=== PATIENT | male | born 1940 | race Caucasian/White ===

== ENCOUNTER 2018-09-06 14:15 | Inpatient (IN) | payer MEDICARE, OTHER ==
--- NOTE | 2018-09-06 15:06 | CR ---
EXAMINATION: PA chest radiograph. HISTORY: Other specified cardiac arrhythmias. FINDINGS: The trachea is midline. The cardiomediastinal silhouette is within normal limits. No pulmonary infiltrates, effusions or pneumothorax. Left-sided pacemaker is noted. Osseous structures appear unremarkable. IMPRESSION: No acute cardiopulmonary process.
[2018-09-06 15:14] LABS: CHLORIDE,CL 90 mmol/L (98-107); SODIUM,NA 132 mmol/L (136-148)
[2018-09-06] MEDS ORDERED: Albuterol 8 GM Inhaler INH PRN (17:25)
[2018-09-06] MEDS ORDERED: Sodium Chloride 0.9% 1,000 ML IV ONE (17:33)
--- NOTE | 2018-09-06 17:39 | PCM.HP ---
H&P History of Present Illness - General Date of Service: 09/06/18 Admit Problem/Dx: Admission Diagnosis/Problem Admission Diagnosis/Problem Hyperglycemia Source of Information: Patient History Limitations: Reports: No Limitations - History of Present Illness Initial Comments - Free Text/Narative: 77M hx of CAD, HLD, A. 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 Lab work obtained by marketing senior recruiter was significant for a glucose > 700. Patient has had abnormal glucose readings in the past but were not further evaluated. Currently, he denies any fever, chills, shortness of breath or chest pain. He denies abdominal pain, nausea or vomiting. He tells me that he was scheduled for hernia repair surgery yesterday in [place] but cancelled due to not feeling well. - Related Data Allergies/Adverse Reactions: Allergies Allergy/AdvReac Type Severity Reaction Status Date / Time No Known Allergies Allergy Verified 12/11/17 20:34 Home Medications: Home Meds Albuterol Sulfate [Proair Hfa] 2 puff INH QID PRN 11/09/16 [History] Allopurinol [Zyloprim] 300 mg PO DAILY 11/09/16 [History] Aspirin [[place] Aspirin EC] 81 mg PO DAILY 11/09/16 [History] Furosemide 20 mg PO DAILY 11/09/16 [History] Losartan Potassium 50 mg PO BID 11/09/16 [History] Metoprolol Succinate 1 tab PO BID 11/09/16 [History] Multivitamin [Multivitamins] 1 tab PO DAILY 11/09/16 [History] Nitroglycerin 1 tab SL ASDIRECTED PRN 11/09/16 [History] Glycopyrrolate/Formoterol Fum [Bevespi Aerosphere Inhaler] 10.7 gm IH BID [History] Rivaroxaban [Xarelto] 15 mg PO DAILY 12/05/17 [History] Rosuvastatin Calcium 20 mg PO DAILY 12/05/17 [History] amLODIPine [Norvasc] 5 mg PO DAILY 12/05/17 [History] methylPREDNISolone [Medrol] 4 mg PO ASDIRECTED 1 Days #1 tab.ds.pk 12/05/17 [Rx] levoFLOXacin [Levaquin] 750 mg PO DAILY #7 tablet 12/13/17 [Rx] Past Medical History HEENT History: Reports: Other (See Below) Other HEENT History: wears glasses, has reagan hearing aids but does not wear Cardiovascular History: Reports: Arrhythmia, CAD, Cardiomyopathy, Heart Failure , High Cholesterol, Hypertension, [place], Pacemaker, PTCA Respiratory History: Reports: COPD, SOB Gastrointestinal History: Reports: Colon Polyp, Diverticulosis, GERD Genitourinary History: Reports: Prostate Disorder, Other (See Below) Other Genitourinary History: renal cell carcinoma, prostatectomy for prostate cancer Musculoskeletal History: Reports: Gout Other Musculoskeletal History: hx of multiple fx's Neurological History: Reports: None Psychiatric History: Reports: None Endocrine/Metabolic History: Reports: Obesity/BMI 30+ Hematologic History: Reports: None Immunologic History: Reports: None Oncologic (Cancer) History: Reports: Prostate Other Oncologic History: renal cell carcinoma, prostate cancer Dermatologic History: Reports: None - Past Surgical History Head Surgeries/Procedures: Reports: None Other Cardiovascular Surgeries/Procedures: pacemaker placement, angioplasty GI Surgical History: Reports: Cholecystectomy, Colonoscopy, Hernia, Inguinal Male Surgical History: Reports: Prostatectomy Neurological Surgical History: Reports: None Dermatological Surgical History: Reports: None Social & Family History - Family History Family Medical History: Noncontributory - Caffeine Use Caffeine Use: Reports: Coffee H&P Review of Systems - Review of Systems: Review Of Systems: See Below General: Reports: Weakness, Fatigue HEENT: Reports: No Symptoms Pulmonary: Reports: No Symptoms Cardiovascular: Reports: No Symptoms Gastrointestinal: Reports: No Symptoms Genitourinary: Reports: No Symptoms Musculoskeletal: Reports: No Symptoms Psychiatric: Reports: No Symptoms Neurological: Reports: No Symptoms Hematologic/Lymphatic: Reports: No Symptoms Immunologic: Reports: No Symptoms Exam - Exam Exam: See Below - Exam General: Alert, Oriented, Cooperative HEENT: Conjunctiva Clear, EACs Clear, EOMI, Hearing Intact, Mucosa Moist & [place] Neck: Supple, Trachea Midline Lungs: Clear to Auscultation, Normal Respiratory Effort Cardiovascular: Regular Rate, Regular Rhythm GI/Abdominal Exam: Normal Bowel Sounds, Soft, Non-Tender, No Organomegaly, No Distention Back Exam: Normal Inspection, Full Range of Motion. No: CVA Tenderness (L), CVA Tenderness (R) Extremities: Other (trace pedal edema bilaterally ) Peripheral Pulses: 1+: Dorsalis Pedis (L), Dorsalis Pedis (R) Skin: Warm, Dry Neuro Extensive - Mental Status: Alert, Oriented x3, Normal Mood/Affect Neuro Extensive - Motor, Sensory, Reflexes: CN II-XII Intact DTR: 2+: Achilles (L), Achilles (R) Psychiatric: Alert, Normal Affect, Normal Mood - Patient Data Lab Results Last 24 hrs: Laboratory Results - last 24 hr 09/06/18 09/06/18 09/06/18 Range/Units 14:38 14:38 14:38 WBC 10.49 (4.0-11.0) K/uL RBC 5.30 (4.50-5.90) M/uL Hgb 16.3 (13.0-17.0) g/dL Hct 48.3 (38.0-50.0) % MCV 91.1 (80.0-98.0) fL MCH 30.8 (27.0-32.0) pg MCHC 33.7 (31.0-37.0) g/dL RDW Std Deviation 47.8 (28.0-62.0) fl RDW Coeff of Robert 14 (11.0-15.0) % Plt Count 167 (150-400) K/uL MPV 12.00 (7.40-12.00) fL Neut % (Auto) 77.4 (48.0-80.0) % Lymph % (Auto) 15.0 L (16.0-40.0) % Humphreys % (Auto) 6.1 (0.0-15.0) % Eos % (Auto) 1.0 (0.0-7.0) % Baso % (Auto) 0.5 (0.0-1.5) % Neut # (Auto) 8.1 H (1.4-5.7) K/uL Lymph # (Auto) 1.6 (0.6-2.4) K/uL Humphreys # (Auto) 0.6 (0.0-0.8) K/uL Eos # (Auto) 0.1 (0.0-0.7) K/uL Baso # (Auto) 0.1 (0.0-0.1) K/uL Nucleated RBC % 0.0 /100WBC Nucleated RBCs # 0 K/uL Sodium 132 L (136-148) mmol/L Potassium 3.9 (3.5-5.1) mmol/L Chloride 90 L (98-107) mmol/L Carbon Dioxide 21.2 (21.0-32.0) mmol/L BUN 27 H (7.0-18.0) mg/dL Creatinine 1.7 H (0.8-1.3) mg/dL Est Cr Clr Drug Dosing TNP Estimated GFR (MDRD) 39.1 ml/min Glucose 717 H* (74-106) mg/dL Calcium 9.7 (8.5-10.1) mg/dL Total Bilirubin 1.8 H (0.2-1.0) mg/dL AST 28 (15-37) IU/L ALT 56 (14-63) IU/L Alkaline Phosphatase 128 H (46-116) U/L B-Natriuretic Peptide 22 (<100) PG/ML Total Protein 7.8 (6.4-8.2) g/dL Albumin 4.1 (3.4-5.0) g/dL Globulin 3.7 (2.6-4.0) g/dL Albumin/Globulin Ratio 1.1 (0.9-1.6) Ketones (NEG) 09/06/18 09/06/18 Range/Units 14:38 15:43 WBC (4.0-11.0) K/uL RBC (4.50-5.90) M/uL Hgb (13.0-17.0) g/dL Hct (38.0-50.0) % MCV (80.0-98.0) fL MCH (27.0-32.0) pg MCHC (31.0-37.0) g/dL RDW Std Deviation (28.0-62.0) fl RDW Coeff of Robert (11.0-15.0) % Plt Count (150-400) K/uL MPV (7.40-12.00) fL Neut % (Auto) (48.0-80.0) % Lymph % (Auto) (16.0-40.0) % Humphreys % (Auto) (0.0-15.0) % Eos % (Auto) (0.0-7.0) % Baso % (Auto) (0.0-1.5) % Neut # (Auto) (1.4-5.7) K/uL Lymph # (Auto) (0.6-2.4) K/uL Humphreys # (Auto) (0.0-0.8) K/uL Eos # (Auto) (0.0-0.7) K/uL Baso # (Auto) (0.0-0.1) K/uL Nucleated RBC % /100WBC Nucleated RBCs # K/uL Sodium (136-148) mmol/L Potassium (3.5-5.1) mmol/L Chloride (98-107) mmol/L Carbon Dioxide (21.0-32.0) mmol/L BUN (7.0-18.0) mg/dL Creatinine (0.8-1.3) mg/dL Est Cr Clr Drug Dosing Estimated GFR (MDRD) ml/min Glucose 688 H* (74-106) mg/dL Calcium (8.5-10.1) mg/dL Total Bilirubin (0.2-1.0) mg/dL AST (15-37) IU/L ALT (14-63) IU/L Alkaline Phosphatase (46-116) U/L B-Natriuretic Peptide (<100) PG/ML Total Protein (6.4-8.2) g/dL Albumin (3.4-5.0) g/dL Globulin (2.6-4.0) g/dL Albumin/Globulin Ratio (0.9-1.6) Ketones MODERATE H (NEG) Result Diagrams: 09/06/18 14:38 09/06/18 14:38 Problem List Initiated/Reviewed/Updated: Yes Orders Last 24hrs: Active Orders 24 hr Category Date Time Status Patient Status [ADT] Routine ADT 09/06/18 17:22 Active EKG Documentation Completion [RC] STAT Care 09/06/18 17:33 Ordered Oxygen Therapy [RC] PRN Care 09/06/18 17:22 Active Up ad Bernie [RC] ASDIRECTED Care 09/06/18 17:22 Active VTE/DVT Education [RC] PER UNIT ROUTINE Care 09/06/18 17:22 Active Vital Signs [RC] Q4H Care 09/06/18 17:22 Active Consult to Diabetic Nurse Specialist [CONS] Routine Cons 09/06/18 17:25 Active [place] Diet [DIET] Diet 09/07/18 Breakfast Active CBC W/O DIFF,HEMOGRAM [HEME] AM Lab 09/07/18 05:11 Ordered COMPREHENSIVE METABOLIC PN,CMP [CHEM] AM Lab 09/07/18 05:11 Ordered TROPONIN I [CHEM] Stat Lab 09/06/18 17:22 Ordered Albuterol [Proventil HFA] Med 09/06/18 17:25 Ordered DOSE gm INH QID PRN Allopurinol [Zyloprim] Med 09/07/18 09:00 Ordered 300 mg PO DAILY Aspirin [Halfprin] Med 09/07/18 09:00 Ordered 81 mg PO DAILY Glycopyrrolate/Formoterol Fum [Bevespi Aerosphere Med 09/06/18 21:00 Ordered Inhaler] 10.7 gm IH BID Insulin Regular, Human [NovoLIN R] 100 unit Med 09/06/18 17:30 Active Sodium Chloride 0.9% [Normal Saline] 99 ml IV TITRATE Metoprolol Succinate [Toprol XL] Med 09/06/18 21:00 Ordered 50 mg PO BID Rivaroxaban [Xarelto] Med 09/07/18 09:00 Ordered 15 mg PO DAILY Rosuvastatin Calcium [Rosuvastatin Calcium] Med 09/07/18 09:00 Ordered 20 mg PO DAILY Sodium Chloride 0.9% [Normal Saline] 1,000 ml Med 09/06/18 17:33 Ordered IV STAT amLODIPine [Norvasc] Med 09/07/18 09:00 Ordered 5 mg PO DAILY Resuscitation Status Routine Resus Stat 09/06/18 17:22 Ordered Medication Orders Albuterol (Proventil Hfa) gm INH QID PRN PRN Reason: Shortness of Breath Allopurinol (Zyloprim) 300 mg PO DAILY JESSE Amlodipine Besylate (Norvasc) 5 mg PO DAILY [facility] Aspirin (Halfprin) 81 mg PO DAILY [facility] Insulin Human Regular 100 unit (/ Sodium Chloride) 100 mls @ 2 mls/hr IV TITRATE JESSE; Protocol Metoprolol Succinate (Toprol Xl) 50 mg PO BID [facility] Non-Formulary Medication (Glycopyrrolate/Formoterol Fum [Bevespi Aerosphere Inhaler]) 10.7 gm IH BID JESSE Non-Formulary Medication (Rosuvastatin Calcium [Rosuvastatin Calcium]) 20 mg PO DAILY JESSE Rivaroxaban (Xarelto) 15 mg PO DAILY [facility] Assessment/Plan Comment:: Assessment: #1. Hyperglycemia with ketonuria #2. GILLIAN #3. Mild hyponatremia #4. Hyperbilirubinemia #5. Elevated alk phos #6. History of CAD, CHF, a. Fib, gout, HTN, COPD, Plan: #1. Admit to inpatient ICU #2. Vitals per floor. Cardiac tele. Diabetic diet. 1L IVNS bolus x1 #3. Insulin drip #4. Troponin #5. EKG #6. BMP 4 hours after first reading #7. Lipase #8. Hgba1c #9. Consult service desk manager
[2018-09-06 19:04] LABS: CHLORIDE,CL 94 mmol/L (98-107); SODIUM,NA 133 mmol/L (136-148)
[2018-09-06] MEDS: NS + KCl 20mEq/L 1,000 ML IV SCH (19:09)
[2018-09-06] MEDS: BEVESPI AEROSPHERE INH SCH (20:31)
[2018-09-06] MEDS: Metoprolol Succinate 50 MG Tab.ER PO SCH (20:31)
[2018-09-07] MEDS ORDERED: Potassium Chloride 20 MEQ Tab.ER PO ONE ×2 (02:56→07:30)
[2018-09-07] MEDS: NS + KCl 20mEq/L 1,000 ML IV SCH (05:11)
[2018-09-07 06:41] LABS: HEMOGLOBIN A1C 12.1 % (4.5-6.2)
[2018-09-07] MEDS: Insulin Aspart 100 Units/ML 3 ML Pen SUBCUT SCH ×5 (07:41→17:39)
[2018-09-07] MEDS: Allopurinol 300 MG Tab PO SCH (08:07)
[2018-09-07] MEDS: Rivaroxaban 15 MG Tab PO SCH (08:07)
[2018-09-07] MEDS: Rosuvastatin 10 MG Tab PO SCH (08:08)
[2018-09-07] MEDS: amLODIPine 5 MG Tab PO SCH (08:08)
[2018-09-07] MEDS: Aspirin 81 MG Tab.EC PO SCH (08:08)
[2018-09-07] MEDS: Metoprolol Succinate 50 MG Tab.ER PO SCH ×2 (08:08→20:46)
[2018-09-07] MEDS ORDERED: Insulin Glargine,Human Rec. Analog 100 Units/ML 3 ML Pen SUBCUT SCH (09:00)
[2018-09-07] MEDS: Insulin Glargine,Human Rec. Analog 100 Units/ML 3 ML Pen SUBCUT SCH (09:24)
[2018-09-07] MEDS: BEVESPI AEROSPHERE INH SCH ×2 (09:42→20:47)
[2018-09-07] MEDS ORDERED: Insulin Aspart 100 Units/ML 3 ML Pen SUBCUT ONE ×2 (12:11→13:50)
--- NOTE | 2018-09-07 13:19 | PCM.PN ---
- General Info Date of Service: 09/07/18 Subjective Update: Feels better. Off insulin drip on insulin sliding scale. Is tolerating PO, denying pain or nausea. - Review of Systems General: Reports: Other (see hpi) - Patient Data Vitals - Most Recent: Last Vital Signs Temp 36.1 C 09/07/18 08:00 Pulse 71 09/07/18 12:06 Resp 19 09/07/18 12:06 BP 140/74 09/07/18 12:06 Pulse Ox 91 L 09/07/18 12:06 Weight - Most Recent: 96.842 kg I&O - Last 24 Hours: Intake & Output 09/06/18 09/07/18 09/07/18 22:59 06:59 14:59 Intake Total 600 1761 Output Total 300 800 Balance 300 961 Lab Results Last 24 Hours: Laboratory Results - last 24 hr 09/06/18 09/06/18 09/06/18 Range/Units 14:38 14:38 14:38 WBC 10.49 (4.0-11.0) K/uL RBC 5.30 (4.50-5.90) M/uL Hgb 16.3 (13.0-17.0) g/dL Hct 48.3 (38.0-50.0) % MCV 91.1 (80.0-98.0) fL MCH 30.8 (27.0-32.0) pg MCHC 33.7 (31.0-37.0) g/dL RDW Std Deviation 47.8 (28.0-62.0) fl RDW Coeff of Robert 14 (11.0-15.0) % Plt Count 167 (150-400) K/uL MPV 12.00 (7.40-12.00) fL Neut % (Auto) 77.4 (48.0-80.0) % Lymph % (Auto) 15.0 L (16.0-40.0) % Franklin % (Auto) 6.1 (0.0-15.0) % Eos % (Auto) 1.0 (0.0-7.0) % Baso % (Auto) 0.5 (0.0-1.5) % Neut # (Auto) 8.1 H (1.4-5.7) K/uL Lymph # (Auto) 1.6 (0.6-2.4) K/uL Franklin # (Auto) 0.6 (0.0-0.8) K/uL Eos # (Auto) 0.1 (0.0-0.7) K/uL Baso # (Auto) 0.1 (0.0-0.1) K/uL Nucleated RBC % 0.0 /100WBC Nucleated RBCs # 0 K/uL Sodium 132 L (136-148) mmol/L Potassium 3.9 (3.5-5.1) mmol/L Chloride 90 L (98-107) mmol/L Carbon Dioxide 21.2 (21.0-32.0) mmol/L BUN 27 H (7.0-18.0) mg/dL Creatinine 1.7 H (0.8-1.3) mg/dL Est Cr Clr Drug Dosing TNP Estimated GFR (MDRD) 39.1 ml/min Glucose 717 H* (74-106) mg/dL POC Glucose (60-110) mg/dL Hemoglobin A1c (4.5-6.2) % Calcium 9.7 (8.5-10.1) mg/dL Phosphorus (2.6-4.7) mg/dL Magnesium (1.8-2.4) mg/dL Total Bilirubin 1.8 H (0.2-1.0) mg/dL AST 28 (15-37) IU/L ALT 56 (14-63) IU/L Alkaline Phosphatase 128 H (46-116) U/L Troponin I (0.000-0.056) ng/mL B-Natriuretic Peptide 22 (<100) PG/ML Total Protein 7.8 (6.4-8.2) g/dL Albumin 4.1 (3.4-5.0) g/dL Globulin 3.7 (2.6-4.0) g/dL Albumin/Globulin Ratio 1.1 (0.9-1.6) Lipase (73-393) U/L Urine Color Urine Appearance Urine pH (5.0-8.0) Ur Specific Ward (1.001-1.035) Urine Protein (NEGATIVE) mg/dL Urine Glucose (UA) (NEGATIVE) mg/dL Urine Ketones (NEGATIVE) mg/dL Urine Occult Blood (NEGATIVE) Urine Nitrite (NEGATIVE) Urine Bilirubin (NEGATIVE) Urine Urobilinogen (<2.0) EU/dL Ur Leukocyte Esterase (NEGATIVE) Ketones (NEG) 09/06/18 09/06/18 09/06/18 Range/Units 14:38 15:43 15:43 WBC (4.0-11.0) K/uL RBC (4.50-5.90) M/uL Hgb (13.0-17.0) g/dL Hct (38.0-50.0) % MCV (80.0-98.0) fL MCH (27.0-32.0) pg MCHC (31.0-37.0) g/dL RDW Std Deviation (28.0-62.0) fl RDW Coeff of Robert (11.0-15.0) % Plt Count (150-400) K/uL MPV (7.40-12.00) fL Neut % (Auto) (48.0-80.0) % Lymph % (Auto) (16.0-40.0) % Franklin % (Auto) (0.0-15.0) % Eos % (Auto) (0.0-7.0) % Baso % (Auto) (0.0-1.5) % Neut # (Auto) (1.4-5.7) K/uL Lymph # (Auto) (0.6-2.4) K/uL Franklin # (Auto) (0.0-0.8) K/uL Eos # (Auto) (0.0-0.7) K/uL Baso # (Auto) (0.0-0.1) K/uL Nucleated RBC % /100WBC Nucleated RBCs # K/uL Sodium (136-148) mmol/L Potassium (3.5-5.1) mmol/L Chloride (98-107) mmol/L Carbon Dioxide (21.0-32.0) mmol/L BUN (7.0-18.0) mg/dL Creatinine (0.8-1.3) mg/dL Est Cr Clr Drug Dosing Estimated GFR (MDRD) ml/min Glucose 688 H* (74-106) mg/dL POC Glucose (60-110) mg/dL Hemoglobin A1c (4.5-6.2) % Calcium (8.5-10.1) mg/dL Phosphorus (2.6-4.7) mg/dL Magnesium (1.8-2.4) mg/dL Total Bilirubin (0.2-1.0) mg/dL AST (15-37) IU/L ALT (14-63) IU/L Alkaline Phosphatase (46-116) U/L Troponin I < 0.050 (0.000-0.056) ng/mL B-Natriuretic Peptide (<100) PG/ML Total Protein (6.4-8.2) g/dL Albumin (3.4-5.0) g/dL Globulin (2.6-4.0) g/dL Albumin/Globulin Ratio (0.9-1.6) Lipase (73-393) U/L Urine Color Urine Appearance Urine pH (5.0-8.0) Ur Specific Ward (1.001-1.035) Urine Protein (NEGATIVE) mg/dL Urine Glucose (UA) (NEGATIVE) mg/dL Urine Ketones (NEGATIVE) mg/dL Urine Occult Blood (NEGATIVE) Urine Nitrite (NEGATIVE) Urine Bilirubin (NEGATIVE) Urine Urobilinogen (<2.0) EU/dL Ur Leukocyte Esterase (NEGATIVE) Ketones MODERATE H (NEG) 09/06/18 09/06/18 09/06/18 Range/Units 15:43 17:51 18:26 WBC (4.0-11.0) K/uL RBC (4.50-5.90) M/uL Hgb (13.0-17.0) g/dL Hct (38.0-50.0) % MCV (80.0-98.0) fL MCH (27.0-32.0) pg MCHC (31.0-37.0) g/dL RDW Std Deviation (28.0-62.0) fl RDW Coeff of Robert (11.0-15.0) % Plt Count (150-400) K/uL MPV (7.40-12.00) fL Neut % (Auto) (48.0-80.0) % Lymph % (Auto) (16.0-40.0) % Franklin % (Auto) (0.0-15.0) % Eos % (Auto) (0.0-7.0) % Baso % (Auto) (0.0-1.5) % Neut # (Auto) (1.4-5.7) K/uL Lymph # (Auto) (0.6-2.4) K/uL Franklin # (Auto) (0.0-0.8) K/uL Eos # (Auto) (0.0-0.7) K/uL Baso # (Auto) (0.0-0.1) K/uL Nucleated RBC % /100WBC Nucleated RBCs # K/uL Sodium 133 L (136-148) mmol/L Potassium 3.6 (3.5-5.1) mmol/L Chloride 94 L (98-107) mmol/L Carbon Dioxide 21.4 (21.0-32.0) mmol/L BUN 27 H (7.0-18.0) mg/dL Creatinine 1.5 H (0.8-1.3) mg/dL Est Cr Clr Drug Dosing TNP Estimated GFR (MDRD) 45.1 ml/min Glucose 573 H* (74-106) mg/dL POC Glucose > 500 H (60-110) mg/dL Hemoglobin A1c (4.5-6.2) % Calcium 9.5 (8.5-10.1) mg/dL Phosphorus (2.6-4.7) mg/dL Magnesium (1.8-2.4) mg/dL Total Bilirubin (0.2-1.0) mg/dL AST (15-37) IU/L ALT (14-63) IU/L Alkaline Phosphatase (46-116) U/L Troponin I (0.000-0.056) ng/mL B-Natriuretic Peptide (<100) PG/ML Total Protein (6.4-8.2) g/dL Albumin (3.4-5.0) g/dL Globulin (2.6-4.0) g/dL Albumin/Globulin Ratio (0.9-1.6) Lipase 118 (73-393) U/L Urine Color Urine Appearance Urine pH (5.0-8.0) Ur Specific Ward (1.001-1.035) Urine Protein (NEGATIVE) mg/dL Urine Glucose (UA) (NEGATIVE) mg/dL Urine Ketones (NEGATIVE) mg/dL Urine Occult Blood (NEGATIVE) Urine Nitrite (NEGATIVE) Urine Bilirubin (NEGATIVE) Urine Urobilinogen (<2.0) EU/dL Ur Leukocyte Esterase (NEGATIVE) Ketones (NEG) 09/06/18 09/06/18 09/06/18 Range/Units 18:26 18:59 20:30 WBC (4.0-11.0) K/uL RBC (4.50-5.90) M/uL Hgb (13.0-17.0) g/dL Hct (38.0-50.0) % MCV (80.0-98.0) fL MCH (27.0-32.0) pg MCHC (31.0-37.0) g/dL RDW Std Deviation (28.0-62.0) fl RDW Coeff of Robert (11.0-15.0) % Plt Count (150-400) K/uL MPV (7.40-12.00) fL Neut % (Auto) (48.0-80.0) % Lymph % (Auto) (16.0-40.0) % Franklin % (Auto) (0.0-15.0) % Eos % (Auto) (0.0-7.0) % Baso % (Auto) (0.0-1.5) % Neut # (Auto) (1.4-5.7) K/uL Lymph # (Auto) (0.6-2.4) K/uL Franklin # (Auto) (0.0-0.8) K/uL Eos # (Auto) (0.0-0.7) K/uL Baso # (Auto) (0.0-0.1) K/uL Nucleated RBC % /100WBC Nucleated RBCs # K/uL Sodium (136-148) mmol/L Potassium (3.5-5.1) mmol/L Chloride (98-107) mmol/L Carbon Dioxide (21.0-32.0) mmol/L BUN (7.0-18.0) mg/dL Creatinine (0.8-1.3) mg/dL Est Cr Clr Drug Dosing Estimated GFR (MDRD) ml/min Glucose (74-106) mg/dL POC Glucose 481 H (60-110) mg/dL Hemoglobin A1c (4.5-6.2) % Calcium (8.5-10.1) mg/dL Phosphorus 4.2 (2.6-4.7) mg/dL Magnesium 2.1 (1.8-2.4) mg/dL Total Bilirubin (0.2-1.0) mg/dL AST (15-37) IU/L ALT (14-63) IU/L Alkaline Phosphatase (46-116) U/L Troponin I (0.000-0.056) ng/mL B-Natriuretic Peptide (<100) PG/ML Total Protein (6.4-8.2) g/dL Albumin (3.4-5.0) g/dL Globulin (2.6-4.0) g/dL Albumin/Globulin Ratio (0.9-1.6) Lipase (73-393) U/L Urine Color YELLOW Urine Appearance CLEAR Urine pH 5.0 (5.0-8.0) Ur Specific Ward 1.015 (1.001-1.035) Urine Protein NEGATIVE (NEGATIVE) mg/dL Urine Glucose (UA) >=1000 (NEGATIVE) mg/dL Urine Ketones 40 H (NEGATIVE) mg/dL Urine Occult Blood NEGATIVE (NEGATIVE) Urine Nitrite NEGATIVE (NEGATIVE) Urine Bilirubin NEGATIVE (NEGATIVE) Urine Urobilinogen 0.2 (<2.0) EU/dL Ur Leukocyte Esterase NEGATIVE (NEGATIVE) Ketones (NEG) 09/06/18 09/06/18 09/07/18 Range/Units 22:01 23:05 00:02 WBC (4.0-11.0) K/uL RBC (4.50-5.90) M/uL Hgb (13.0-17.0) g/dL Hct (38.0-50.0) % MCV (80.0-98.0) fL MCH (27.0-32.0) pg MCHC (31.0-37.0) g/dL RDW Std Deviation (28.0-62.0) fl RDW Coeff of Robert (11.0-15.0) % Plt Count (150-400) K/uL MPV (7.40-12.00) fL Neut % (Auto) (48.0-80.0) % Lymph % (Auto) (16.0-40.0) % Franklin % (Auto) (0.0-15.0) % Eos % (Auto) (0.0-7.0) % Baso % (Auto) (0.0-1.5) % Neut # (Auto) (1.4-5.7) K/uL Lymph # (Auto) (0.6-2.4) K/uL Franklin # (Auto) (0.0-0.8) K/uL Eos # (Auto) (0.0-0.7) K/uL Baso # (Auto) (0.0-0.1) K/uL Nucleated RBC % /100WBC Nucleated RBCs # K/uL Sodium 136 (136-148) mmol/L Potassium 3.3 L (3.5-5.1) mmol/L Chloride 99 (98-107) mmol/L Carbon Dioxide 23.3 (21.0-32.0) mmol/L BUN 29 H (7.0-18.0) mg/dL Creatinine 1.4 H (0.8-1.3) mg/dL Est Cr Clr Drug Dosing 48.35 Estimated GFR (MDRD) 48.9 ml/min Glucose 494 H (74-106) mg/dL POC Glucose 396 H 350 H (60-110) mg/dL Hemoglobin A1c (4.5-6.2) % Calcium 9.0 (8.5-10.1) mg/dL Phosphorus (2.6-4.7) mg/dL Magnesium (1.8-2.4) mg/dL Total Bilirubin (0.2-1.0) mg/dL AST (15-37) IU/L ALT (14-63) IU/L Alkaline Phosphatase (46-116) U/L Troponin I (0.000-0.056) ng/mL B-Natriuretic Peptide (<100) PG/ML Total Protein (6.4-8.2) g/dL Albumin (3.4-5.0) g/dL Globulin (2.6-4.0) g/dL Albumin/Globulin Ratio (0.9-1.6) Lipase (73-393) U/L Urine Color Urine Appearance Urine pH (5.0-8.0) Ur Specific Ward (1.001-1.035) Urine Protein (NEGATIVE) mg/dL Urine Glucose (UA) (NEGATIVE) mg/dL Urine Ketones (NEGATIVE) mg/dL Urine Occult Blood (NEGATIVE) Urine Nitrite (NEGATIVE) Urine Bilirubin (NEGATIVE) Urine Urobilinogen (<2.0) EU/dL Ur Leukocyte Esterase (NEGATIVE) Ketones (NEG) 09/07/18 09/07/18 09/07/18 Range/Units 01:04 02:05 02:07 WBC (4.0-11.0) K/uL RBC (4.50-5.90) M/uL Hgb (13.0-17.0) g/dL Hct (38.0-50.0) % MCV (80.0-98.0) fL MCH (27.0-32.0) pg MCHC (31.0-37.0) g/dL RDW Std Deviation (28.0-62.0) fl RDW Coeff of Robert (11.0-15.0) % Plt Count (150-400) K/uL MPV (7.40-12.00) fL Neut % (Auto) (48.0-80.0) % Lymph % (Auto) (16.0-40.0) % Franklin % (Auto) (0.0-15.0) % Eos % (Auto) (0.0-7.0) % Baso % (Auto) (0.0-1.5) % Neut # (Auto) (1.4-5.7) K/uL Lymph # (Auto) (0.6-2.4) K/uL Franklin # (Auto) (0.0-0.8) K/uL Eos # (Auto) (0.0-0.7) K/uL Baso # (Auto) (0.0-0.1) K/uL Nucleated RBC % /100WBC Nucleated RBCs # K/uL Sodium 140 (136-148) mmol/L Potassium 3.1 L (3.5-5.1) mmol/L Chloride 103 (98-107) mmol/L Carbon Dioxide 26.9 (21.0-32.0) mmol/L BUN 26 H (7.0-18.0) mg/dL Creatinine 1.3 (0.8-1.3) mg/dL Est Cr Clr Drug Dosing 52.07 Estimated GFR (MDRD) 53.3 ml/min Glucose 332 H (74-106) mg/dL POC Glucose 325 H 267 H (60-110) mg/dL Hemoglobin A1c (4.5-6.2) % Calcium 9.0 (8.5-10.1) mg/dL Phosphorus (2.6-4.7) mg/dL Magnesium (1.8-2.4) mg/dL Total Bilirubin (0.2-1.0) mg/dL AST (15-37) IU/L ALT (14-63) IU/L Alkaline Phosphatase (46-116) U/L Troponin I (0.000-0.056) ng/mL B-Natriuretic Peptide (<100) PG/ML Total Protein (6.4-8.2) g/dL Albumin (3.4-5.0) g/dL Globulin (2.6-4.0) g/dL Albumin/Globulin Ratio (0.9-1.6) Lipase (73-393) U/L Urine Color Urine Appearance Urine pH (5.0-8.0) Ur Specific Ward (1.001-1.035) Urine Protein (NEGATIVE) mg/dL Urine Glucose (UA) (NEGATIVE) mg/dL Urine Ketones (NEGATIVE) mg/dL Urine Occult Blood (NEGATIVE) Urine Nitrite (NEGATIVE) Urine Bilirubin (NEGATIVE) Urine Urobilinogen (<2.0) EU/dL Ur Leukocyte Esterase (NEGATIVE) Ketones (NEG) 09/07/18 09/07/18 09/07/18 Range/Units 03:03 04:10 05:14 WBC (4.0-11.0) K/uL RBC (4.50-5.90) M/uL Hgb (13.0-17.0) g/dL Hct (38.0-50.0) % MCV (80.0-98.0) fL MCH (27.0-32.0) pg MCHC (31.0-37.0) g/dL RDW Std Deviation (28.0-62.0) fl RDW Coeff of Robert (11.0-15.0) % Plt Count (150-400) K/uL MPV (7.40-12.00) fL Neut % (Auto) (48.0-80.0) % Lymph % (Auto) (16.0-40.0) % Franklin % (Auto) (0.0-15.0) % Eos % (Auto) (0.0-7.0) % Baso % (Auto) (0.0-1.5) % Neut # (Auto) (1.4-5.7) K/uL Lymph # (Auto) (0.6-2.4) K/uL Franklin # (Auto) (0.0-0.8) K/uL Eos # (Auto) (0.0-0.7) K/uL Baso # (Auto) (0.0-0.1) K/uL Nucleated RBC % /100WBC Nucleated RBCs # K/uL Sodium (136-148) mmol/L Potassium (3.5-5.1) mmol/L Chloride (98-107) mmol/L Carbon Dioxide (21.0-32.0) mmol/L BUN (7.0-18.0) mg/dL Creatinine (0.8-1.3) mg/dL Est Cr Clr Drug Dosing Estimated GFR (MDRD) ml/min Glucose (74-106) mg/dL POC Glucose 298 H 241 H 255 H (60-110) mg/dL Hemoglobin A1c (4.5-6.2) % Calcium (8.5-10.1) mg/dL Phosphorus (2.6-4.7) mg/dL Magnesium (1.8-2.4) mg/dL Total Bilirubin (0.2-1.0) mg/dL AST (15-37) IU/L ALT (14-63) IU/L Alkaline Phosphatase (46-116) U/L Troponin I (0.000-0.056) ng/mL B-Natriuretic Peptide (<100) PG/ML Total Protein (6.4-8.2) g/dL Albumin (3.4-5.0) g/dL Globulin (2.6-4.0) g/dL Albumin/Globulin Ratio (0.9-1.6) Lipase (73-393) U/L Urine Color Urine Appearance Urine pH (5.0-8.0) Ur Specific Ward (1.001-1.035) Urine Protein (NEGATIVE) mg/dL Urine Glucose (UA) (NEGATIVE) mg/dL Urine Ketones (NEGATIVE) mg/dL Urine Occult Blood (NEGATIVE) Urine Nitrite (NEGATIVE) Urine Bilirubin (NEGATIVE) Urine Urobilinogen (<2.0) EU/dL Ur Leukocyte Esterase (NEGATIVE) Ketones (NEG) 09/07/18 09/07/1809/07/19 Range/Units 06:00 06:00 06:00 WBC 8.56 (4.0-11.0) K/uL RBC 4.72 (4.50-5.90) M/uL Hgb 14.2 (13.0-17.0) g/dL Hct 41.8 (38.0-50.0) % MCV 88.6 (80.0-98.0) fL MCH 30.1 (27.0-32.0) pg MCHC 34.0 (31.0-37.0) g/dL RDW Std Deviation 45.4 (28.0-62.0) fl RDW Coeff of Robert 14 (11.0-15.0) % Plt Count 140 L (150-400) K/uL MPV 11.50 (7.40-12.00) fL Neut % (Auto) (48.0-80.0) % Lymph % (Auto) (16.0-40.0) % Franklin % (Auto) (0.0-15.0) % Eos % (Auto) (0.0-7.0) % Baso % (Auto) (0.0-1.5) % Neut # (Auto) (1.4-5.7) K/uL Lymph # (Auto) (0.6-2.4) K/uL Franklin # (Auto) (0.0-0.8) K/uL Eos # (Auto) (0.0-0.7) K/uL Baso # (Auto) (0.0-0.1) K/uL Nucleated RBC % 0.0 /100WBC Nucleated RBCs # 0 K/uL Sodium 142 (136-148) mmol/L Potassium 3.3 L (3.5-5.1) mmol/L Chloride 107 (98-107) mmol/L Carbon Dioxide 26.2 (21.0-32.0) mmol/L BUN 23 H (7.0-18.0) mg/dL Creatinine 1.2 (0.8-1.3) mg/dL Est Cr Clr Drug Dosing 56.41 Estimated GFR (MDRD) 58.4 ml/min Glucose 226 H (74-106) mg/dL POC Glucose (60-110) mg/dL Hemoglobin A1c 12.1 H (4.5-6.2) % Calcium 8.9 (8.5-10.1) mg/dL Phosphorus (2.6-4.7) mg/dL Magnesium (1.8-2.4) mg/dL Total Bilirubin 0.8 (0.2-1.0) mg/dL AST 16 (15-37) IU/L ALT 38 (14-63) IU/L Alkaline Phosphatase 92 (46-116) U/L Troponin I (0.000-0.056) ng/mL B-Natriuretic Peptide (<100) PG/ML Total Protein 5.8 L (6.4-8.2) g/dL Albumin 3.0 L (3.4-5.0) g/dL Globulin 2.8 (2.6-4.0) g/dL Albumin/Globulin Ratio 1.1 (0.9-1.6) Lipase (73-393) U/L Urine Color Urine Appearance Urine pH (5.0-8.0) Ur Specific Ward (1.001-1.035) Urine Protein (NEGATIVE) mg/dL Urine Glucose (UA) (NEGATIVE) mg/dL Urine Ketones (NEGATIVE) mg/dL Urine Occult Blood (NEGATIVE) Urine Nitrite (NEGATIVE) Urine Bilirubin (NEGATIVE) Urine Urobilinogen (<2.0) EU/dL Ur Leukocyte Esterase (NEGATIVE) Ketones (NEG) 09/07/18 09/07/18 09/07/18 Range/Units 06:00 07:19 08:15 WBC (4.0-11.0) K/uL RBC (4.50-5.90) M/uL Hgb (13.0-17.0) g/dL Hct (38.0-50.0) % MCV (80.0-98.0) fL MCH (27.0-32.0) pg MCHC (31.0-37.0) g/dL RDW Std Deviation (28.0-62.0) fl RDW Coeff of Robert (11.0-15.0) % Plt Count (150-400) K/uL MPV (7.40-12.00) fL Neut % (Auto) (48.0-80.0) % Lymph % (Auto) (16.0-40.0) % Franklin % (Auto) (0.0-15.0) % Eos % (Auto) (0.0-7.0) % Baso % (Auto) (0.0-1.5) % Neut # (Auto) (1.4-5.7) K/uL Lymph # (Auto) (0.6-2.4) K/uL Franklin # (Auto) (0.0-0.8) K/uL Eos # (Auto) (0.0-0.7) K/uL Baso # (Auto) (0.0-0.1) K/uL Nucleated RBC % /100WBC Nucleated RBCs # K/uL Sodium (136-148) mmol/L Potassium (3.5-5.1) mmol/L Chloride (98-107) mmol/L Carbon Dioxide (21.0-32.0) mmol/L BUN (7.0-18.0) mg/dL Creatinine (0.8-1.3) mg/dL Est Cr Clr Drug Dosing Estimated GFR (MDRD) ml/min Glucose (74-106) mg/dL POC Glucose 216 H 228 H 193 H (60-110) mg/dL Hemoglobin A1c (4.5-6.2) % Calcium (8.5-10.1) mg/dL Phosphorus (2.6-4.7) mg/dL Magnesium (1.8-2.4) mg/dL Total Bilirubin (0.2-1.0) mg/dL AST (15-37) IU/L ALT (14-63) IU/L Alkaline Phosphatase (46-116) U/L Troponin I (0.000-0.056) ng/mL B-Natriuretic Peptide (<100) PG/ML Total Protein (6.4-8.2) g/dL Albumin (3.4-5.0) g/dL Globulin (2.6-4.0) g/dL Albumin/Globulin Ratio (0.9-1.6) Lipase (73-393) U/L Urine Color Urine Appearance Urine pH (5.0-8.0) Ur Specific Ward (1.001-1.035) Urine Protein (NEGATIVE) mg/dL Urine Glucose (UA) (NEGATIVE) mg/dL Urine Ketones (NEGATIVE) mg/dL Urine Occult Blood (NEGATIVE) Urine Nitrite (NEGATIVE) Urine Bilirubin (NEGATIVE) Urine Urobilinogen (<2.0) EU/dL Ur Leukocyte Esterase (NEGATIVE) Ketones (NEG) 09/07/18 09/07/18 Range/Units 08:59 11:56 WBC (4.0-11.0) K/uL RBC (4.50-5.90) M/uL Hgb (13.0-17.0) g/dL Hct (38.0-50.0) % MCV (80.0-98.0) fL MCH (27.0-32.0) pg MCHC (31.0-37.0) g/dL RDW Std Deviation (28.0-62.0) fl RDW Coeff of Robert (11.0-15.0) % Plt Count (150-400) K/uL MPV (7.40-12.00) fL Neut % (Auto) (48.0-80.0) % Lymph % (Auto) (16.0-40.0) % Franklin % (Auto) (0.0-15.0) % Eos % (Auto) (0.0-7.0) % Baso % (Auto) (0.0-1.5) % Neut # (Auto) (1.4-5.7) K/uL Lymph # (Auto) (0.6-2.4) K/uL Franklin # (Auto) (0.0-0.8) K/uL Eos # (Auto) (0.0-0.7) K/uL Baso # (Auto) (0.0-0.1) K/uL Nucleated RBC % /100WBC Nucleated RBCs # K/uL Sodium (136-148) mmol/L Potassium (3.5-5.1) mmol/L Chloride (98-107) mmol/L Carbon Dioxide (21.0-32.0) mmol/L BUN (7.0-18.0) mg/dL Creatinine (0.8-1.3) mg/dL Est Cr Clr Drug Dosing Estimated GFR (MDRD) ml/min Glucose (74-106) mg/dL POC Glucose 212 H 413 H (60-110) mg/dL Hemoglobin A1c (4.5-6.2) % Calcium (8.5-10.1) mg/dL Phosphorus (2.6-4.7) mg/dL Magnesium (1.8-2.4) mg/dL Total Bilirubin (0.2-1.0) mg/dL AST (15-37) IU/L ALT (14-63) IU/L Alkaline Phosphatase (46-116) U/L Troponin I (0.000-0.056) ng/mL B-Natriuretic Peptide (<100) PG/ML Total Protein (6.4-8.2) g/dL Albumin (3.4-5.0) g/dL Globulin (2.6-4.0) g/dL Albumin/Globulin Ratio (0.9-1.6) Lipase (73-393) U/L Urine Color Urine Appearance Urine pH (5.0-8.0) Ur Specific Ward (1.001-1.035) Urine Protein (NEGATIVE) mg/dL Urine Glucose (UA) (NEGATIVE) mg/dL Urine Ketones (NEGATIVE) mg/dL Urine Occult Blood (NEGATIVE) Urine Nitrite (NEGATIVE) Urine Bilirubin (NEGATIVE) Urine Urobilinogen (<2.0) EU/dL Ur Leukocyte Esterase (NEGATIVE) Ketones (NEG) Med Orders - Current: Current Medications Albuterol (Ventolin Hfa) 8 gm INH QID PRN PRN Reason: Shortness of Breath Allopurinol (Zyloprim) 300 mg PO DAILY [facility] Last Admin: 09/07/18 08:07 Dose: 300 mg Amlodipine Besylate (Norvasc) 5 mg PO DAILY [facility] Last Admin: 09/07/18 08:08 Dose: 5 mg Aspirin (Halfprin) 81 mg PO DAILY [facility] Last Admin: 09/07/18 08:08 Dose: 81 mg Insulin Aspart (Novolog) 0 unit SUBCUT TIDAC [facility]; Protocol Last Admin: 09/07/18 09:23 Dose: 2 units Insulin Glargine (Lantus Solostar) 20 units SUBCUT DAILY [facility] Last Admin: 09/07/18 09:24 Dose: 20 units Metoprolol Succinate (Toprol Xl) 50 mg PO BID [facility] Last Admin: 09/07/18 08:08 Dose: 50 mg [Bevespi Aerosphere (Inhaler] 1 Puff) 1 each INH BID [facility] Last Admin: 09/07/18 09:42 Dose: Not Given Rivaroxaban (Xarelto) 15 mg PO DAILY [facility] Last Admin: 09/07/18 08:07 Dose: 15 mg Rosuvastatin Calcium (Crestor) 20 mg PO DAILY [facility] Last Admin: 09/07/18 08:08 Dose: 20 mg Discontinued Medications Insulin Human Regular 100 unit (/ Sodium Chloride) 100 mls @ 2 mls/hr IV TITRATE [facility]; Protocol Last Titration: 09/07/18 06:05 Dose: 2.5 unit/hr, 2.5 mls/hr Sodium Chloride (Normal Saline) 1,000 mls @ 999 mls/hr IV STAT ONE Stop: 09/06/18 18:33 Last Admin: 09/06/18 17:43 Dose: 999 mls/hr Potassium Chloride/Sodium Chloride (Normal Saline With 20 Meq Kcl) 1,000 mls @ 100 mls/hr IV ASDIRECTED [facility] Last Admin: 09/07/18 05:11 Dose: 100 mls/hr Insulin Aspart (Novolog) 10 unit SUBCUT ONETIME ONE Stop: 09/07/18 12:12 Last Admin: 09/07/18 12:13 Dose: 10 units Insulin Glargine (Lantus Solostar) 30 units SUBCUT DAILY [facility] Last Admin: 09/07/18 09:42 Dose: Not Given Potassium Chloride (Klor-Con M20) 40 meq PO ONETIME ONE Stop: 09/07/18 02:57 Last Admin: 09/07/18 03:20 Dose: 40 meq Potassium Chloride (Klor-Con M20) 40 meq PO ONETIME ONE Stop: 09/07/18 07:31 Last Admin: 09/07/18 08:07 Dose: 40 meq - Exam Quality Assessment: Supplemental Oxygen General: Alert, Oriented HEENT: Pupils Equal, Pupils Reactive, EOMI, Mucous Membr. Moist/[place] Neck: Supple Lungs: Clear to Auscultation, Normal Respiratory Effort Cardiovascular: Regular Rate, Regular Rhythm GI/Abdominal Exam: Normal Bowel Sounds, Soft, Non-Tender, No Organomegaly Extremities: Normal Inspection, Normal Range of Motion, Non-Tender, Normal Capillary Refill, Other (trace edema) Peripheral Pulses: 1+: Dorsalis Pedis (L), Dorsalis Pedis (R) Psy/Mental Status: Alert, Normal Affect, Normal Mood - Problem List Review Problem List Initiated/Reviewed/Updated: Yes - My Orders Last 24 Hours: My Active Orders 09/06/18 17:22 Patient Status [ADT] Routine Oxygen Therapy [RC] PRN Up ad Bernie [RC] ASDIRECTED VTE/DVT Education [RC] PER UNIT ROUTINE Vital Signs [RC] Q4H Resuscitation Status Routine 09/06/18 17:25 Consult to Diabetic Nurse Specialist [CONS] Routine Albuterol [Ventolin HFA] 8 gm INH QID PRN 09/06/18 21:00 Metoprolol Succinate [Toprol XL] 50 mg PO BID Patient's Own Medication [Ptom] 1 each INH BID 09/07/18 07:30 Insulin Aspart [NovoLOG] See Protocol SUBCUT TIDAC 09/07/18 09:00 Allopurinol [Zyloprim] 300 mg PO DAILY Aspirin [Halfprin] 81 mg PO DAILY Rivaroxaban [Xarelto] 15 mg PO DAILY Rosuvastatin [Crestor] 20 mg PO DAILY amLODIPine [Norvasc] 5 mg PO DAILY 09/07/18 09:15 Insulin Glarg,Human.Rec.Analog [LantUS Solostar] 20 units SUBCUT DAILY 09/07/18 Breakfast [employer] Diet [DIET] - Plan Plan:: Assessment: #1. T2DM #2. Hyperglycemia #3. Hypokalemia #4. GILLIAN - resolved #5. Hypoxia Plan: #1. Start 20units lantus daily #2. 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 I don't want to start him on a sulfonylurea given his age and concerns of hypoglycemia in the future. I want to start him on long acting daily #4. Continue home meds #5. DC 1-2 days pending
[2018-09-07] MEDS: Losartan 50 MG Tab PO SCH (20:46)
[2018-09-07] MEDS ORDERED: Insulin Aspart 100 Units/ML 3 ML Pen SUBCUT STA (23:37)
[2018-09-08] MEDS: Insulin Aspart 100 Units/ML 3 ML Pen SUBCUT SCH (07:51)
--- NOTE | 2018-09-08 09:47 | PCM.DCSUM1 ---
Discharge Summary - Discharge Data Discharge Date: 09/08/18 Discharge Disposition: Home, Self-Care 01 Condition: Good - Patient Summary/Data Consults: Consultations 09/06/18 17:25 Consult to Diabetic Nurse Specialist [CONS] Routine Hospital Course: 77 yo male with pmh of CAD, HLD, A. Fib, COPD, HTN that presented to his dba manager for an outpatient appointment with a chief complaint of generalized weakness and not feeling well. Lab work obtained by dba manager was significant for a glucose >700. Patient was directly admitted for hyperglycemia and dehydration. He was treated with IV fluids and insulin drip. He was then transitioned to subcutaneous insulin. early childhood educator aide was consulted and did not think he could correctly give premeal insulin. He was discharged home with Lantus 25 units daily. He is to follow up with Dr. Phillip. - Patient Instructions Diet: Diabetic Diet Activity: As Tolerated Notify Provider of: Fever, Swelling and Redness - Discharge Plan Prescriptions/Med Rec: Insulin Glarg,Human.Rec.Analog [Lantus Solostar] 25 units SUBCUT DAILY #1 pen Home Medications: Home Meds Albuterol Sulfate [Proair Hfa] 2 puff INH QID PRN 11/09/16 [History] Allopurinol [Zyloprim] 300 mg PO DAILY 11/09/16 [History] Aspirin [[place] Aspirin EC] 81 mg PO BEDTIME 11/09/16 [History] Furosemide 40 mg PO DAILY 11/09/16 [History] Losartan Potassium 50 mg PO BID 11/09/16 [History] Metoprolol Succinate 1 tab PO BID 11/09/16 [History] Multivitamin [Multivitamins] 1 tab PO DAILY 11/09/16 [History] Nitroglycerin 1 tab SL ASDIRECTED PRN 11/09/16 [History] Glycopyrrolate/Formoterol Fum [Bevespi Aerosphere Inhaler] 10.7 gm IH BID [History] Rivaroxaban [Xarelto] 15 mg PO DAILY 12/05/17 [History] Rosuvastatin Calcium 20 mg PO BEDTIME 12/05/17 [History] amLODIPine [Norvasc] 20 mg PO DAILY 12/05/17 [History] Pantoprazole Sodium 40 mg PO BEDTIME 09/07/18 [History] Umeclidinium Brm/Vilanterol Tr [Anoro Ellipta 62.5-25 MCG] 1 each IH DAILY 09/07 [History] Insulin Glarg,Human.Rec.Analog [Lantus Solostar] 25 units SUBCUT DAILY #1 pen [Rx] Patient Handouts: Insulin Storage and Care, Insulin Treatment for Diabetes Mellitus, Hyperglycemia, Insulin Injection Instructions, Using Insulin Pens, Adult Referrals: [facility] [Outside] Lui Phillip MD [Primary Care Provider] - 09/14/18 11:00 am Jj Swan [Ordering Only Provider] - 09/20/18 1:45 pm - Discharge Summary/Plan Comment DC Time >30 min.: No - Patient Data Vitals - Most Recent: Last Vital Signs Temp 36.8 C 09/07/18 23:24 Pulse 70 09/07/18 23:24 Resp 20 09/07/18 23:24 BP 142/78 H 09/07/18 23:24 Pulse Ox 92 L 09/07/18 23:24 Weight - Most Recent: 96.842 kg I&O - Last 24 hours: Intake & Output 09/07/18 09/08/18 09/08/18 22:59 06:59 14:59 Intake Total 1560 1000 Output Total 700 1050 Balance 860 -50 Lab Results - Last 24 hrs: Laboratory Results - last 24 hr 09/07/18 09/07/18 09/07/18 Range/Units 11:56 13:38 14:16 POC Glucose 413 H 413 H 395 H (60-110) mg/dL 09/07/18 09/07/18 09/07/18 Range/Units 16:42 17:37 23:26 POC Glucose 310 H 288 H 363 H (60-110) mg/dL 09/08/18 Range/Units 07:14 POC Glucose 312 H (60-110) mg/dL JULIO Results - Last 24 hrs: Microbiology 09/07/18 09:12 Aerobic Blood Culture - Preliminary Blood - Venous - Lab Draw NO GROWTH AFTER 1 DAY Anaerobic Blood Culture - Preliminary NO GROWTH AFTER 1 DAY 09/07/18 08:59 Aerobic Blood Culture - Preliminary Blood - Venous NO GROWTH AFTER 1 DAY Anaerobic Blood Culture - Preliminary NO GROWTH AFTER 1 DAY Med Orders - Current: Current Medications Albuterol (Ventolin Hfa) 8 gm INH QID PRN PRN Reason: Shortness of Breath Allopurinol (Zyloprim) 300 mg PO DAILY [facility] Last Admin: 09/07/18 08:07 Dose: 300 mg Amlodipine Besylate (Norvasc) 5 mg PO DAILY [facility] Last Admin: 09/07/18 08:08 Dose: 5 mg Aspirin (Halfprin) 81 mg PO DAILY [facility] Last Admin: 09/07/18 08:08 Dose: 81 mg Insulin Aspart (Novolog) 0 unit SUBCUT TIDAC [facility]; Protocol Last Admin: 09/08/18 07:51 Dose: 4 units Insulin Glargine (Lantus Solostar) 20 units SUBCUT DAILY [facility] Last Admin: 09/07/18 09:24 Dose: 20 units Losartan Potassium (Cozaar) 50 mg PO BID [facility] Last Admin: 09/07/18 20:46 Dose: 50 mg Metoprolol Succinate (Toprol Xl) 50 mg PO BID [facility] Last Admin: 09/07/18 20:46 Dose: 50 mg [Bevespi Aerosphere (Inhaler] 1 Puff) 1 each INH BID [facility] Last Admin: 09/07/18 20:47 Dose: Not Given Rivaroxaban (Xarelto) 15 mg PO DAILY [facility] Last Admin: 09/07/18 08:07 Dose: 15 mg Rosuvastatin Calcium (Crestor) 20 mg PO DAILY [facility] Last Admin: 09/07/18 08:08 Dose: 20 mg Discontinued Medications Insulin Human Regular 100 unit (/ Sodium Chloride) 100 mls @ 2 mls/hr IV TITRATE [facility]; Protocol Last Titration: 09/07/18 06:05 Dose: 2.5 unit/hr, 2.5 mls/hr Sodium Chloride (Normal Saline) 1,000 mls @ 999 mls/hr IV STAT ONE Stop: 09/06/18 18:33 Last Admin: 09/06/18 17:43 Dose: 999 mls/hr Potassium Chloride/Sodium Chloride (Normal Saline With 20 Meq Kcl) 1,000 mls @ 100 mls/hr IV ASDIRECTED [facility] Last Admin: 09/07/18 05:11 Dose: 100 mls/hr Insulin Aspart (Novolog) 10 unit SUBCUT ONETIME ONE Stop: 09/07/18 12:12 Last Admin: 09/07/18 12:13 Dose: 10 units Insulin Aspart (Novolog) 10 unit SUBCUT ONETIME ONE Stop: 09/07/18 13:51 Last Admin: 09/07/18 14:00 Dose: 10 units Insulin Aspart (Novolog) 0 unit SUBCUT NOW STA Stop: 09/07/18 23:38 Last Admin: 09/07/18 23:48 Dose: 5 units Insulin Glargine (Lantus Solostar) 30 units SUBCUT DAILY [facility] Last Admin: 09/07/18 09:42 Dose: Not Given Potassium Chloride (Klor-Con M20) 40 meq PO ONETIME ONE Stop: 09/07/18 02:57 Last Admin: 09/07/18 03:20 Dose: 40 meq Potassium Chloride (Klor-Con M20) 40 meq PO ONETIME ONE Stop: 09/07/18 07:31 Last Admin: 09/07/18 08:07 Dose: 40 meq
[2018-09-08] MEDS: Metoprolol Succinate 50 MG Tab.ER PO SCH (10:23)
[2018-09-08] MEDS: Losartan 50 MG Tab PO SCH (10:23)
[2018-09-08] MEDS: Aspirin 81 MG Tab.EC PO SCH (10:24)
[2018-09-08] MEDS: Rivaroxaban 15 MG Tab PO SCH (10:25)
[2018-09-08] MEDS: Allopurinol 300 MG Tab PO SCH (10:25)
[2018-09-08] MEDS: amLODIPine 5 MG Tab PO SCH (10:25)
[2018-09-08] MEDS: Rosuvastatin 10 MG Tab PO SCH (10:25)
[2018-09-08] MEDS: Insulin Glargine,Human Rec. Analog 100 Units/ML 3 ML Pen SUBCUT SCH (10:26)
[2018-09-08] MEDS: BEVESPI AEROSPHERE INH SCH (10:26)
[2018-09-08 10:30] VITALS: BP 158/99
== END 2018-09-08 11:28 | disposition home or self-care (01) | DRG 309 ==
LOC: MW.CHIM 14:15 → MW.ICU 16:35 → MW.MS 09-07 18:49
PROVIDERS: ADMIT Internal Medicine; ATTEND Internal Medicine
DX: I49.8 Other specified cardiac arrhythmias (principal); N17.9 Acute kidney failure, unspecified; E87.1 Hypo-osmolality and hyponatremia; E11.65 Type 2 diabetes mellitus with hyperglycemia; E86.0 Dehydration; E80.6 Other disorders of bilirubin metabolism; R74.8 Abnormal levels of other serum enzymes; R09.02 Hypoxemia; I25.10 Atherosclerotic heart disease of native coronary artery without angina pectoris; I11.0 Hypertensive heart disease with heart failure; I50.9 Heart failure, unspecified; I25.2 Old myocardial infarction; I48.91 Unspecified atrial fibrillation; J44.9 Chronic obstructive pulmonary disease, unspecified; I42.9 Cardiomyopathy, unspecified; Z98.61 Coronary angioplasty status; Z95.0 Presence of cardiac pacemaker; E66.9 Obesity, unspecified; Z85.46 Personal history of malignant neoplasm of prostate; Z85.528 Personal history of other malignant neoplasm of kidney; Z79.01 Long term (current) use of anticoagulants; Z79.82 Long term (current) use of aspirin; Z79.899 Other long term (current) drug therapy; Z68.28 Body mass index [BMI] 28.0-28.9, adult
CPT/HCPCS: 36415; 71045; 71045-26; 80048; 80053; 81003; 82009; 82947; 82962; 83036; 83690; 83735; 83880; 84100; 84484; 85025; 85027; 87040; 93005; A9270-GY; J1815-GY; J3480; J7030; J7040

== ENCOUNTER 2018-09-10 23:53 | Emergency (ER) | payer MEDICARE, OTHER ==
[2018-09-11] MEDS ORDERED: Sodium Chloride 0.9% 10 ML Syringe FLUSH PRN (00:16)
[2018-09-11] MEDS ORDERED: Sodium Chloride 0.9% 1,000 ML IV ONE (00:16)
[2018-09-11] MEDS ORDERED: Sodium Chloride 0.9% 2.5 ML Syringe FLUSH PRN (00:16)
[2018-09-11] MEDS ORDERED: Insulin Regular, Human 100 Units/ML 10 ML Vial SUBCUT ONE (00:17)
--- NOTE | 2018-09-11 00:21 | EDM.PDOC ---
ED HPI GENERAL MEDICAL PROBLEM - General Chief Complaint: Diabetic Complaint Stated Complaint: HIGH BLOOD SUGAR Time Seen by Provider: 09/11/18 00:08 - History of Present Illness INITIAL COMMENTS - FREE TEXT/NARRATIVE: HISTORY AND PHYSICAL: History of present illness: The patient is a 77-year-old male who was just released here from her hospital on September 08, 2 days ago after being admitted from the clinic for hyperglycemia. He was managed with fluids and an insulin drip and improved and was just discharged and was given a prescription at discharge for Lantus 25 units a day of insulin. According to the they tried to fill the prescription and they were told that insurance would not cover it unless the patient's primary care physician authorized it. The said that she tried to get Dr. Phillip to take care of that today but it was not addressed and he had no insulin since his discharge and now his sugar is elevated again. The patient has a history of a pacemaker coronary artery disease A. fib with chronic anticoagulation COPD hyperlipidemia and hypertension. He denies any chest pain or shortness of breath no abdominal pain nausea or vomiting no diarrhea and he is urinating normally. The patient says he has had generalized weakness but he has not passed out or blacked out and it is not one extremity but his whole body. Review of systems: As per history of present illness and below otherwise all systems reviewed and negative. Past medical history: As per history of present illness and as reviewed below otherwise noncontributory. Surgical history: As per history of present illness and as reviewed below otherwise noncontributory. Social history: No reported history of drug or alcohol abuse. Family history: As per history of present illness and as reviewed below otherwise noncontributory. Physical exam: General: Well-developed well-nourished man who is nontoxic and moves easily in the bed with some weakness and is speaking clearly and easily. He is not breathless and vital signs are noted by me HEENT: Atraumatic, normocephalic, pupils reactive, negative for conjunctival pallor or scleral icterus, mucous membranes moist, throat clear, neck supple, nontender, trachea midline. Lungs: Clear to auscultation, breath sounds equal bilaterally, chest nontender. Heart: S1S2, regular rate and rhythm no overt murmurs Abdomen: Soft, nondistended, nontender. Negative for masses or hepatosplenomegaly. NABS Pelvis: Stable nontender. Genitourinary: Deferred. Rectal: Deferred. Extremities: Atraumatic, negative for cords or calf pain. Neurovascular unremarkable. No pedal edema Neuro: Awake, alert, oriented. Cranial nerves II through XII unremarkable. Cerebellum unremarkable. Motor is 4/5 throughout in the bed and sensory unremarkable throughout. Exam nonfocal. Diagnostics: Accu-Chek CBC CMP serum ketones UA with reflex INR EKG Therapeutics: IV O2 monitor IV fluids insulin subcutaneous 0056: Case was discussed with Dr. Walker and he is aware of the disconnect with the clinic in getting this patient is insulin and we will follow-up in the morning with the clinic to get that taken care of. He is aware of testing results and that he has a normal anion gap and trace ketones in urine and blood , and he recommends giving the patient a dose of Lantus here, only 20 units, to tie him over until he can get his prescription. is at bedside and patient is also aware of his plan and she is agreeable. Impression: Hyperglycemia, inability to obtain insulin therapy stable Definitive disposition and diagnosis as appropriate pending reevaluation and review of above. no pain Pain Score (Numeric/FACES): 0 - Related Data Allergies Allergy/AdvReac Type Severity Reaction Status Date / Time No Known Allergies Allergy Verified 09/11/18 00:10 Home Meds: Home Meds Albuterol Sulfate [Proair Hfa] 2 puff INH QID PRN 11/09/16 [History] Allopurinol [Zyloprim] 300 mg PO DAILY 11/09/16 [History] Aspirin [[place] Aspirin EC] 81 mg PO BEDTIME 11/09/16 [History] Furosemide 40 mg PO DAILY 11/09/16 [History] Losartan Potassium 50 mg PO BID 11/09/16 [History] Metoprolol Succinate 1 tab PO BID 11/09/16 [History] Multivitamin [Multivitamins] 1 tab PO DAILY 11/09/16 [History] Nitroglycerin 1 tab SL ASDIRECTED PRN 11/09/16 [History] Glycopyrrolate/Formoterol Fum [Bevespi Aerosphere Inhaler] 10.7 gm IH BID [History] Rivaroxaban [Xarelto] 15 mg PO DAILY 12/05/17 [History] Rosuvastatin Calcium 20 mg PO BEDTIME 12/05/17 [History] amLODIPine [Norvasc] 20 mg PO DAILY 12/05/17 [History] Pantoprazole Sodium 40 mg PO BEDTIME 09/07/18 [History] Umeclidinium Brm/Vilanterol Tr [Anoro Ellipta 62.5-25 MCG] 1 each IH DAILY 09/07 [History] Insulin Glarg,Human.Rec.Analog [Lantus Solostar] 25 units SUBCUT DAILY #1 pen [Rx] Past Medical History HEENT History: Reports: Other (See Below) Other HEENT History: wears glasses, has reagan hearing aids but does not wear Cardiovascular History: Reports: Arrhythmia, CAD, Cardiomyopathy, Heart Failure , High Cholesterol, Hypertension, AR, Pacemaker, PTCA Respiratory History: Reports: COPD, SOB Gastrointestinal History: Reports: Colon Polyp, Diverticulosis, GERD Genitourinary History: Reports: Prostate Disorder, Other (See Below) Other Genitourinary History: renal cell carcinoma, prostatectomy for prostate cancer Musculoskeletal History: Reports: Gout Other Musculoskeletal History: hx of multiple fx's Neurological History: Reports: None Psychiatric History: Reports: None Endocrine/Metabolic History: Reports: Obesity/BMI 30+ Hematologic History: Reports: None Immunologic History: Reports: None Oncologic (Cancer) History: Reports: Prostate Other Oncologic History: renal cell carcinoma, prostate cancer Dermatologic History: Reports: None - Infectious Disease History Infectious Disease History: Reports: Chicken Pox, Measles, Mumps - Past Surgical History Head Surgeries/Procedures: Reports: None Other Cardiovascular Surgeries/Procedures: pacemaker placement, angioplasty GI Surgical History: Reports: Cholecystectomy, Colonoscopy, Hernia, Inguinal Male Surgical History: Reports: Prostatectomy Neurological Surgical History: Reports: None Dermatological Surgical History: Reports: None Social & Family History - Family History Family Medical History: Noncontributory - Caffeine Use Caffeine Use: Reports: Coffee ED ROS GENERAL - Review of Systems Review Of Systems: ROS reveals no pertinent complaints other than HPI. ED EXAM GENERAL NO PERIP PULSE - Physical Exam Exam: See Below (see Dictation) Course - Vital Signs Last Recorded V/S: Last Vital Signs Temp 36.7 C 09/11/18 00:06 Pulse 71 09/11/18 00:53 Resp 19 09/11/18 00:53 BP 141/93 H 09/11/18 00:53 Pulse Ox 93 L 09/11/18 00:53 - Orders/Labs/Meds Orders: Active Orders 24 hr Category Date Time Status Blood Glucose Check, Bedside [] ONETIME Care 09/11/18 00:16 Active Cardiac Monitoring [RC] . DIRECTED Care 09/11/18 00:15 Active EKG Documentation Completion [RC] STAT Care 09/11/18 00:16 Active Oxygen Therapy, ED [RC] ASDIRECTED Care 09/11/18 00:15 Active Pulse Oximetry [RC] ASDIRECTED Care 09/11/18 00:15 Active Insulin Glarg,Human.Rec.Analog [LantUS Solostar] Med 09/11/18 01:36 Once 20 units SUBCUT ONETIME ONE Sodium Chloride 0.9% [Saline Flush] Med 09/11/18 00:16 Active 10 ml FLUSH ASDIRECTED PRN Sodium Chloride 0.9% [Saline Flush] Med 09/11/18 00:16 Active 2.5 ml FLUSH ASDIRECTED PRN Saline Lock Insert [OM.PC] Stat Oth 09/11/18 00:15 Ordered Medication Orders Insulin Glargine (Lantus Solostar) 20 units SUBCUT ONETIME ONE Stop: 09/11/18 01:37 Sodium Chloride (Saline Flush) 10 ml FLUSH ASDIRECTED PRN PRN Reason: Keep Vein Open Sodium Chloride (Saline Flush) 2.5 ml FLUSH ASDIRECTED PRN PRN Reason: Keep Vein Open Labs: Laboratory Tests 09/11/18 09/11/18 09/11/18 Range/Units 00:02 00:16 00:20 WBC 7.27 (4.0-11.0) K/uL RBC 4.80 (4.50-5.90) M/uL Hgb 14.8 (13.0-17.0) g/dL Hct 43.3 (38.0-50.0) % MCV 90.2 (80.0-98.0) fL MCH 30.8 (27.0-32.0) pg MCHC 34.2 (31.0-37.0) g/dL RDW Std Deviation 47.1 (28.0-62.0) fl RDW Coeff of Robert 14 (11.0-15.0) % Plt Count 119 L (150-400) K/uL MPV 11.40 (7.40-12.00) fL Neut % (Auto) 60.9 (48.0-80.0) % Lymph % (Auto) 26.1 (16.0-40.0) % [place] % (Auto) 10.2 (0.0-15.0) % Eos % (Auto) 2.5 (0.0-7.0) % Baso % (Auto) 0.3 (0.0-1.5) % Neut # (Auto) 4.4 (1.4-5.7) K/uL Lymph # (Auto) 1.9 (0.6-2.4) K/uL [place] # (Auto) 0.7 (0.0-0.8) K/uL Eos # (Auto) 0.2 (0.0-0.7) K/uL Baso # (Auto) 0.0 (0.0-0.1) K/uL Nucleated RBC % 0.0 /100WBC Nucleated RBCs # 0 K/uL INR Sodium (136-148) mmol/L Potassium (3.5-5.1) mmol/L Chloride (98-107) mmol/L Carbon Dioxide (21.0-32.0) mmol/L BUN (7.0-18.0) mg/dL Creatinine (0.8-1.3) mg/dL Est Cr Clr Drug Dosing mL/min Estimated GFR (MDRD) ml/min Glucose (74-106) mg/dL POC Glucose 455 H (60-110) mg/dL Calcium (8.5-10.1) mg/dL Total Bilirubin (0.2-1.0) mg/dL AST (15-37) IU/L ALT (14-63) IU/L Alkaline Phosphatase (46-116) U/L Total Protein (6.4-8.2) g/dL Albumin (3.4-5.0) g/dL Globulin (2.6-4.0) g/dL Albumin/Globulin Ratio (0.9-1.6) Urine Color YELLOW Urine Appearance CLEAR Urine pH 6.0 (5.0-8.0) Ur Specific [place] 1.010 (1.001-1.035) Urine Protein NEGATIVE (NEGATIVE) mg/dL Urine Glucose (UA) >=1000 (NEGATIVE) mg/dL Urine Ketones 15 H (NEGATIVE) mg/dL Urine Occult Blood NEGATIVE (NEGATIVE) Urine Nitrite NEGATIVE (NEGATIVE) Urine Bilirubin NEGATIVE (NEGATIVE) Urine Urobilinogen 0.2 (<2.0) EU/dL Ur Leukocyte Esterase NEGATIVE (NEGATIVE) Ketones (NEG) 09/11/18 09/11/18 09/11/18 Range/Units 00:20 00:20 00:20 WBC (4.0-11.0) K/uL RBC (4.50-5.90) M/uL Hgb (13.0-17.0) g/dL Hct (38.0-50.0) % MCV (80.0-98.0) fL MCH (27.0-32.0) pg MCHC (31.0-37.0) g/dL RDW Std Deviation (28.0-62.0) fl RDW Coeff of Robert (11.0-15.0) % Plt Count (150-400) K/uL MPV (7.40-12.00) fL Neut % (Auto) (48.0-80.0) % Lymph % (Auto) (16.0-40.0) % [place] % (Auto) (0.0-15.0) % Eos % (Auto) (0.0-7.0) % Baso % (Auto) (0.0-1.5) % Neut # (Auto) (1.4-5.7) K/uL Lymph # (Auto) (0.6-2.4) K/uL [place] # (Auto) (0.0-0.8) K/uL Eos # (Auto) (0.0-0.7) K/uL Baso # (Auto) (0.0-0.1) K/uL Nucleated RBC % /100WBC Nucleated RBCs # K/uL INR 1.04 Sodium 134 L (136-148) mmol/L Potassium 4.4 (3.5-5.1) mmol/L Chloride 97 L (98-107) mmol/L Carbon Dioxide 22.9 (21.0-32.0) mmol/L BUN 29 H (7.0-18.0) mg/dL Creatinine 1.3 (0.8-1.3) mg/dL Est Cr Clr Drug Dosing 52.07 mL/min Estimated GFR (MDRD) 53.3 ml/min Glucose 492 H (74-106) mg/dL POC Glucose (60-110) mg/dL Calcium 9.4 (8.5-10.1) mg/dL Total Bilirubin 1.6 H (0.2-1.0) mg/dL AST 30 (15-37) IU/L ALT 51 (14-63) IU/L Alkaline Phosphatase 93 (46-116) U/L Total Protein 6.9 (6.4-8.2) g/dL Albumin 3.5 (3.4-5.0) g/dL Globulin 3.4 (2.6-4.0) g/dL Albumin/Globulin Ratio 1.0 (0.9-1.6) Urine Color Urine Appearance Urine pH (5.0-8.0) Ur Specific [place] (1.001-1.035) Urine Protein (NEGATIVE) mg/dL Urine Glucose (UA) (NEGATIVE) mg/dL Urine Ketones (NEGATIVE) mg/dL Urine Occult Blood (NEGATIVE) Urine Nitrite (NEGATIVE) Urine Bilirubin (NEGATIVE) Urine Urobilinogen (<2.0) EU/dL Ur Leukocyte Esterase (NEGATIVE) Ketones SMALL H (NEG) 09/11/18 Range/Units 01:06 WBC (4.0-11.0) K/uL RBC (4.50-5.90) M/uL Hgb (13.0-17.0) g/dL Hct (38.0-50.0) % MCV (80.0-98.0) fL MCH (27.0-32.0) pg MCHC (31.0-37.0) g/dL RDW Std Deviation (28.0-62.0) fl RDW Coeff of Robert (11.0-15.0) % Plt Count (150-400) K/uL MPV (7.40-12.00) fL Neut % (Auto) (48.0-80.0) % Lymph % (Auto) (16.0-40.0) % [place] % (Auto) (0.0-15.0) % Eos % (Auto) (0.0-7.0) % Baso % (Auto) (0.0-1.5) % Neut # (Auto) (1.4-5.7) K/uL Lymph # (Auto) (0.6-2.4) K/uL [place] # (Auto) (0.0-0.8) K/uL Eos # (Auto) (0.0-0.7) K/uL Baso # (Auto) (0.0-0.1) K/uL Nucleated RBC % /100WBC Nucleated RBCs # K/uL INR Sodium (136-148) mmol/L Potassium (3.5-5.1) mmol/L Chloride (98-107) mmol/L Carbon Dioxide (21.0-32.0) mmol/L BUN (7.0-18.0) mg/dL Creatinine (0.8-1.3) mg/dL Est Cr Clr Drug Dosing mL/min Estimated GFR (MDRD) ml/min Glucose (74-106) mg/dL POC Glucose 417 H (60-110) mg/dL Calcium (8.5-10.1) mg/dL Total Bilirubin (0.2-1.0) mg/dL AST (15-37) IU/L ALT (14-63) IU/L Alkaline Phosphatase (46-116) U/L Total Protein (6.4-8.2) g/dL Albumin (3.4-5.0) g/dL Globulin (2.6-4.0) g/dL Albumin/Globulin Ratio (0.9-1.6) Urine Color Urine Appearance Urine pH (5.0-8.0) Ur Specific [place] (1.001-1.035) Urine Protein (NEGATIVE) mg/dL Urine Glucose (UA) (NEGATIVE) mg/dL Urine Ketones (NEGATIVE) mg/dL Urine Occult Blood (NEGATIVE) Urine Nitrite (NEGATIVE) Urine Bilirubin (NEGATIVE) Urine Urobilinogen (<2.0) EU/dL Ur Leukocyte Esterase (NEGATIVE) Ketones (NEG) Meds: Medications Generic Name Dose Route Start Last Admin Trade Name Freq PRN Reason Stop Dose Admin Insulin Glargine 20 units 09/11/18 01:36 Lantus Solostar SUBCUT 09/11/18 01:37 ONETIME ONE Sodium Chloride 10 ml 09/11/18 00:16 Saline Flush FLUSH ASDIRECTED PRN Keep Vein Open Sodium Chloride 2.5 ml 09/11/18 00:16 Saline Flush FLUSH ASDIRECTED PRN Keep Vein Open Discontinued Medications Generic Name Dose Route Start Last Admin Trade Name Freq PRN Reason Stop Dose Admin Sodium Chloride 1,000 mls @ 999 mls/hr 09/11/18 00:16 09/11/18 00:26 Normal Saline IV 09/11/18 01:16 999 mls/hr STAT ONE Administration Insulin Human Regular 15 unit 09/11/18 00:17 09/11/18 00:24 Novolin R SUBCUT 09/11/18 00:18 15 units ONETIME ONE Administration Protocol Departure - Departure Time of Disposition: 01:37 Disposition: Home, Self-Care 01 Condition: Good Clinical Impression: Hyperglycemia - Discharge Information Referrals: Lui Phillip MD [Primary Care Provider] - Forms: ED Department Discharge Additional Instructions: The following information is given to patients seen in the emergency department who are being discharged to home. This information is to outline your options for follow-up care. We provide all patients seen in our emergency department with a follow-up referral. The need for follow-up, as well as the timing and circumstances, are variable depending upon the specifics of your emergency department visit. If you don't have a primary care physician on staff, we will provide you with a referral. We always advise you to contact your personal physician following an emergency department visit to inform them of the circumstance of the visit and for follow-up with them and/or the need for any referrals to a consulting specialist. The emergency department will also refer you to a specialist when appropriate. This referral assures that you have the opportunity for followup care with a specialist. All of these measure are taken in an effort to provide you with optimal care, which includes your followup. Under all circumstances we always encourage you to contact your private physician who remains a resource for coordinating your care. When calling for followup care, please make the office aware that this follow-up is from your recent emergency room visit. If for any reason you are refused follow-up, please contact the [facility] emergency department at and ask to speak to the emergency department charge nurse. [facility] Primary care- [place] [address] Push hydration and please call the clinic first thing in the morning to get information on your prescription so that you can obtain this. Please continue to monitor the blood sugar and keep your appointment with Dr. Phillip. New call this morning for the prescription also ask if he can move the clinic appointment up sooner date. Return to ER as needed and as discussed - My Orders Last 24 Hours: My Active Orders 09/11/18 00:15 Cardiac Monitoring [RC] . DIRECTED Oxygen Therapy, ED [RC] ASDIRECTED Pulse Oximetry [RC] ASDIRECTED Saline Lock Insert [OM.PC] Stat 09/11/18 00:16 Blood Glucose Check, Bedside [RC] ONETIME EKG Documentation Completion [RC] STAT Sodium Chloride 0.9% [Saline Flush] 10 ml FLUSH ASDIRECTED PRN Sodium Chloride 0.9% [Saline Flush] 2.5 ml FLUSH ASDIRECTED PRN 09/11/18 01:36 Insulin Glarg,Human.Rec.Analog [LantUS Solostar] 20 units SUBCUT ONETIME ONE - Assessment/Plan Last 24 Hours: My Active Orders 09/11/18 00:15 Cardiac Monitoring [RC] . DIRECTED Oxygen Therapy, ED [RC] ASDIRECTED Pulse Oximetry [RC] ASDIRECTED Saline Lock Insert [OM.PC] Stat 09/11/18 00:16 Blood Glucose Check, Bedside [RC] ONETIME EKG Documentation Completion [RC] STAT Sodium Chloride 0.9% [Saline Flush] 10 ml FLUSH ASDIRECTED PRN Sodium Chloride 0.9% [Saline Flush] 2.5 ml FLUSH ASDIRECTED PRN 09/11/18 01:36 Insulin Glarg,Human.Rec.Analog [LantUS Solostar] 20 units SUBCUT ONETIME ONE
[2018-09-11] MEDS ORDERED: Insulin Glargine,Human Rec. Analog 100 Units/ML 3 ML Pen SUBCUT ONE (01:36)
[2018-09-11 01:54] VITALS: BP 148/97
== END 2018-09-11 02:02 | disposition home or self-care (01) ==
LOC: MW.ED 23:53
DX: R73.9 Hyperglycemia, unspecified (principal); I11.0 Hypertensive heart disease with heart failure; I50.9 Heart failure, unspecified; I25.10 Atherosclerotic heart disease of native coronary artery without angina pectoris; J44.9 Chronic obstructive pulmonary disease, unspecified; Z79.82 Long term (current) use of aspirin; Z79.4 Long term (current) use of insulin
CPT/HCPCS: 36415; 80053; 81003; 82009; 82962; 85025; 85610; 93005; 96360; 99285; J1815; J7040

== ENCOUNTER 2021-01-25 08:13 | Emergency (ER) | payer MEDICARE, OTHER ==
[2021-01-25] MEDS ORDERED: Morphine 4 MG/ML Syringe IVPUSH ONE (08:37)
--- NOTE | 2021-01-25 09:12 | CR ---
Indication: Chest pain Comparison: Single view chest September 06, 2018 Technique: Single AP view chest Findings: There is hyperinflation and chronic interstitial change. There is no focal consolidation, effusion, or pneumothorax. The cardiac silhouette is mildly prominent with a dual-chamber pacer. The bony thorax is grossly intact. Impression: There is hyperinflation and chronic interstitial change without evidence of dense consolidation. Dictated by Jose J Jones MD @ 01/25/2021 9:11:37 AM (Electronically Signed)
[2021-01-25 09:24] LABS: BLOOD UREA NITROGEN,BUN 29 mg/dL (7.0-18.0); CARBON DIOXIDE,CO2 30.2 mmol/L (21.0-32.0); CHLORIDE,CL 107 mmol/L (98-107); GLUCOSE RANDOM 122 mg/dL (74-106); POTASSIUM,K 4.2 mmol/L (3.5-5.1); SODIUM,NA 145 mmol/L (136-148)
--- NOTE | 2021-01-25 11:43 | CT ---
CLINICAL INFORMATION: 80-year-old with chest pain, concern for possible aortic aneurysm/dissection. TECHNIQUE: Noncontrast CT of the chest followed by CT angiogram of the chest, abdomen and pelvis were obtained. No enteric contrast was administered and therefore the study has decreased sensitivity for detection of bowel pathology. 3D and/or MIP angiographic reconstructions were performed on a separate independent workstation with concurrent supervision of the image post processing in order to further delineate the angiographic anatomy for accurate interpretation. Contrast: 80 mL of Isovue 370 intravenous contrast was injected uneventfully prior to image acquisition. COMPARISON: None available. FINDINGS: CT Angiography Findings: Thoracic Aorta: No evidence for intramural hematoma, aneurysm, or dissection. Scattered atherosclerotic disease. Great Vessels: Patent. Abdominal aorta: Scattered atherosclerotic disease. No aneurysm or dissection. Celiac axis: Patent. Superior mesenteric artery: Patent. Inferior mesenteric artery: Occluded at its origin with proximal reconstitution. LEFT Renal: Patent. Patent accessory branch supplying the upper pole. RIGHT Renal: Patent. Visceral Findings: Chest: Thyroid: Symmetric. Lungs: Mild bibasilar dependent atelectatic changes. 1.2 cm subpleural ground-glass nodule in the posterior right upper lobe (series 502, image 34). No focal airspace opacities or pleural effusions. Heart/Pericardium: Left-sided posterior with right atrial and ventricular leads. Heart normal in size. No pericardial effusion. Coronary artery atherosclerotic calcifications. Lymph Nodes: No significant axillary, mediastinal, or hilar lymphadenopathy. Abdomen/Pelvis: Liver: Unremarkable. Gallbladder: Surgically absent. Spleen: Unremarkable. Multiple splenules noted in the hilum. Adrenal glands: 1.8 cm left adrenal adenoma. Kidneys: Enhance symmetrically without hydronephrosis bilateral cortical cysts. 2.5 cm partially exophytic enhancing mass arising from the right lower pole most consistent with primary renal neoplasm. Pancreas: Unremarkable. Lymph nodes: No significant abdominal lymphadenopathy. Bowel: Visualized bowel loops normal in caliber without evidence for obstruction. Small bowel containing umbilical hernia without evidence for bowel strangulation. No intra-abdominal free air or focal fluid collection. Musculoskeletal: Visualized osseous structures demonstrate diffuse degenerative changes. IMPRESSION: 1. No acute aortic pathology. No aortic aneurysm, dissection, or intramural hematoma. 2. 1.2 cm pulmonary ground-glass nodule in the right upper lobe. Recommend repeat evaluation with chest CT in 3 months. 3. 2.5 cm partially exophytic enhancing mass arising from the lower pole of the right kidney most consistent with primary neoplasm such as renal cell carcinoma. 4. Small bowel containing umbilical hernia without evidence for bowel strangulation or obstruction. Please note that all CT scans at this facility use dose modulation, iterative reconstruction, and/or weight-based dosing when appropriate to reduce radiation dose to as low as reasonably achievable. Dictated by Amilcar Galvan MD @ 01/25/2021 12:56:39 PM (Electronically Signed)
[2021-01-25] MEDS ORDERED: Iopamidol 755 MG/ML 500 ML Multipack Bottle IVPUSH STA (12:19)
--- NOTE | 2021-01-25 12:43 | EDM.PDOC ---
ED HPI GENERAL MEDICAL PROBLEM - General Chief Complaint: Chest Pain Stated Complaint: chest pains Time Seen by Provider: 01/25/21 08:28 - History of Present Illness INITIAL COMMENTS - FREE TEXT/NARRATIVE: CHIEF COMPLAINT(S): Chest pain HISTORY OF PRESENT ILLNESS: This is a 80-year-old man with a past medical history of diabetes mellitus, hypertension, COPD who comes to the emergency department with a chief complaint of chest pain. Patient states that off and on for the past week he has been experiencing chest pain which he describes as 7 out of 10 located on the left which radiates to the right which he describes as pressure and sharp. He states that it does radiate to his shoulder blade and his back. He denies any shortness of breath, diaphoresis, or nausea but states that he did have some hand tingling in both hands 3 days ago which has not improved. He denies any head injury or neck injury. He denies any chest wall injury. He denies any history of CAD or CHF. He denies any recent travel, recent surgery or prior history of DVT or PE. He does not know what aggravates it or what relieves it however it has since improved since coming to the emergency department today. He denies any other symptoms REVIEW OF SYSTEMS: Constitutional: Denies fever, chills. Eyes: Denies eye pain Ears, Nose, Mouth, & Throat: Denies earache Cardiovascular: Positive for bilateral chest pain Respiratory: Denies shortness of breath Gastrointestinal: Denies Nausea, vomiting, diarrhea, hematochezia. Genitourinary: Denies hematuria Skin:Denies a rash MSK: Positive for back pain. Denies joint pain Neurological: Positive for bilateral hand paresthesias. Denies blurred vision Psychiatric: Denies depression PAST MEDICAL HISTORY: As per history of present illness and as reviewed below otherwise noncontributory. SURGICAL HISTORY: As per history of present illness and as reviewed below otherwise noncontributory. SOCIAL HISTORY: As per history of present illness and as reviewed below otherwise noncontributory. FAMILY HISTORY: As per history of present illness and as reviewed below otherwise noncontributory. EXAMINATION OF ORGAN SYSTEMS/BODY AREAS: Constitutional: Blood pressure is 157/96, heart rate 73, respiratory rate 20 with an oxygen saturation 94% on room air. Temperature 36.2 General: Well-appearing man who is in no acute distress Psychiatric: Appropriate mood and affect. Eyes: No scleral icterus or conjunctival erythema ENMT: Moist mucous membranes. No pharyngeal erythema Cardiovascular: Regular, rate, and rhythm. No gallops, murmurs, or rubs. Bilateral upper extremity pulses symmetric and intact. No peripheral edema. No JVD. Respiratory: Lungs clear to auscultation bilaterally. No wheezes, rales, or rhonchi. No increased work of breathing. Gastrointestinal: Soft, non-tender, non-distended. Normoactive bowel sounds Genitourinary: No suprapubic tenderness Musculoskeletal: Normal range of motion. Skin: No lesions or abrasions. Neurological: Alert, GCS 15 strength and sensation grossly intact in upper and lower extremities bilaterally. MEDICAL DECISION MAKING AND COURSE IN THE ED WITH INTERPRETATION/REVIEW OF DIAGNOSTIC STUDIES: This is a 80-year-old man with a past medical history of diabetes mellitus, hypertension who comes to the emergency department with 1 week of intermittent chest pain with radiation to his back who is mildly hypertensive who is borderline hypoxic however through prior records it appears that this is the patient's baseline oxygen level. EKG was obtained which did not reveal any acute signs of ischemia. Patient was placed on cardiac monitoring and pulse oximetry and desk monitor at this time did reveal sinus rhythm and pulse oximetry with good waveform was 94% on room air. At this time given the patient's duration of symptoms will undergo a cardiac work-up. One troponin will only be needed. Will obtain a Covid swab. Given the radiation to the back and mild hypertension in the patient's age will obtain a CT angiogram to evaluate for aortic aneurysm versus dissection. We will provide the patient with 2 mg of morphine for pain relief. Patient was amenable to this plan. Laboratory: CBC is unremarkable. INR is normal. CMP reveals elevated BUN at 29 and a creatinine of 1.7, hyperglycemia at 122 and hyperbilirubinemia at 1.2. Troponin is negative. Magnesium is normal. Covid is negative. The radiological images were viewed by myself along with reading the report from the radiologist. Chest x-ray does not reveal any acute cardiopulmonary process. CTA of the abdomen and chest do not reveal any aneurysm or dissection. This was a preliminary read. After imaging I did reevaluate the patient. At this time it is uncertain as to what is causing the patient's symptoms however the patient continued to remain stable throughout his evaluation today. I did offer observation admission for the patient however at this time we decided that he should follow-up with cardiology outpatient. I discussed that if any worsening symptoms he should return to the emergency department. He was amenable to discharge at this time and had no further questions DISPOSITION: The patient was discharged home in stable condition. The patient will follow up with cardiology in 1 to 3 days CONDITION: Fair PROCEDURES: None FINAL IMPRESSION(S)/DIAGNOSES: 1. Acute chest pain Edu Roberts M.D. chest Pain Score (Numeric/FACES): 7 - Related Data Allergies Allergy/AdvReac Type Severity Reaction Status Date / Time No Known Allergies Allergy Verified 01/25/21 08:25 Home Meds: Home Meds Albuterol Sulfate [Proair Hfa] 2 puff INH QID PRN 11/09/16 [History] Allopurinol [Zyloprim] 300 mg PO DAILY 11/09/16 [History] Aspirin [[place] Aspirin EC] 81 mg PO BEDTIME 11/09/16 [History] Furosemide 40 mg PO DAILY 11/09/16 [History] Metoprolol Succinate 50 mg PO BID 11/09/16 [History] Multivitamin [Multivitamins] 1 tab PO DAILY 11/09/16 [History] Nitroglycerin 1 tab SL ASDIRECTED PRN 11/09/16 [History] Glycopyrrolate/Formoterol Fum [Bevespi Aerosphere Inhaler] 10.7 gm IH BID 12/05/17 [History] Rivaroxaban [Xarelto] 15 mg PO DAILY 12/05/17 [History] Rosuvastatin Calcium 5 mg PO BEDTIME 12/05/17 [History] amLODIPine [Norvasc] 5 mg PO DAILY 12/05/17 [History] Pantoprazole Sodium 40 mg PO BEDTIME 09/07/18 [History] Umeclidinium Brm/Vilanterol Tr [Anoro Ellipta 62.5-25 MCG] 1 each IH DAILY 09/07/18 [History] Insulin Glarg,Human.Rec.Analog [Lantus Solostar] 25 units SUBCUT DAILY #1 pen 09/08/18 [Rx] Potassium Chloride 20 meq PO DAILY 01/25/21 [History] Valsartan 240 mg PO DAILY 01/25/21 [History] cloNIDine [Catapres] 0.1 mg PO DAILY 01/25/21 [History] metFORMIN [Glucophage] 500 mg PO BIDMEALS 01/25/21 [History] Past Medical History HEENT History: Reports: Other (See Below) Other HEENT History: wears glasses, has reagan hearing aids but does not wear Cardiovascular History: Reports: Arrhythmia, CAD, Cardiomyopathy, Heart Failure, High Cholesterol, Hypertension, GA, Pacemaker, PTCA Respiratory History: Reports: COPD, SOB Gastrointestinal History: Reports: Colon Polyp, Diverticulosis, GERD Genitourinary History: Reports: Prostate Disorder, Other (See Below) Other Genitourinary History: renal cell carcinoma, prostatectomy for prostate cancer Musculoskeletal History: Reports: Gout Other Musculoskeletal History: hx of multiple fx's Neurological History: Reports: None Psychiatric History: Reports: None Endocrine/Metabolic History: Reports: Obesity/BMI 30+ Hematologic History: Reports: None Immunologic History: Reports: None Oncologic (Cancer) History: Reports: Prostate Other Oncologic History: renal cell carcinoma, prostate cancer Dermatologic History: Reports: None - Infectious Disease History Infectious Disease History: Reports: Chicken Pox, Measles, Mumps - Past Surgical History Head Surgeries/Procedures: Reports: None HEENT Surgical History: Reports: None Cardiovascular Surgical History: Reports: Other (See Below) Other Cardiovascular Surgeries/Procedures: pacemaker placement, angioplasty Respiratory Surgical History: Reports: None GI Surgical History: Reports: Cholecystectomy, Colonoscopy, Hernia, Inguinal Male Surgical History: Reports: Prostatectomy Endocrine Surgical History: Reports: None Neurological Surgical History: Reports: None Musculoskeletal Surgical History: Reports: None Oncologic Surgical History: Reports: None Dermatological Surgical History: Reports: None Social & Family History - Family History Family Medical History: No Pertinent Family History - Tobacco Use Tobacco Use Status *Q: Former Tobacco User Used Tobacco, but Quit: Yes Month/Year Tobacco Last Used: 1991 - Caffeine Use Caffeine Use: Reports: Coffee - Recreational Drug Use Recreational Drug Use: No ED ROS GENERAL - Review of Systems Review Of Systems: See Below ED EXAM, GENERAL - Physical Exam Exam: See Below Course - Vital Signs Last Recorded V/S: Last Vital Signs Temp 36.4 C 01/25/21 13:09 Pulse 72 01/25/21 13:09 Resp 16 01/25/21 13:09 BP 140/91 H 01/25/21 13:09 Pulse Ox 94 L 01/25/21 13:09 - Orders/Labs/Meds Labs: Laboratory Tests 01/25/21 01/25/21 01/25/21 Range/Units 08:45 08:50 08:50 WBC 7.65 (4.0-11.0) K/uL RBC 4.64 (4.50-5.90) M/uL Hgb 14.5 (13.0-17.0) g/dL Hct 43.7 (38.0-50.0) % MCV 94.2 (80.0-98.0) fL MCH 31.3 (27.0-32.0) pg MCHC 33.2 (31.0-37.0) g/dL RDW Std Deviation 48.9 (28.0-62.0) fl RDW Coeff of Robert 14 (11.0-15.0) % Plt Count 154 (150-400) K/uL MPV 10.70 (7.40-12.00) fL Neut % (Auto) 60.6 (48.0-80.0) % Lymph % (Auto) 26.1 (16.0-40.0) % Lyman % (Auto) 6.9 (0.0-15.0) % Eos % (Auto) 6.0 (0.0-7.0) % Baso % (Auto) 0.4 (0.0-1.5) % Neut # (Auto) 4.6 (1.4-5.7) K/uL Lymph # (Auto) 2.0 (0.6-2.4) K/uL Lyman # (Auto) 0.5 (0.0-0.8) K/uL Eos # (Auto) 0.5 (0.0-0.7) K/uL Baso # (Auto) 0.0 (0.0-0.1) K/uL Nucleated RBC % 0.0 /100WBC Nucleated RBCs # 0 K/uL INR 1.39 Sodium (136-148) mmol/L Potassium (3.5-5.1) mmol/L Chloride (98-107) mmol/L Carbon Dioxide (21.0-32.0) mmol/L BUN (7.0-18.0) mg/dL Creatinine (0.8-1.3) mg/dL Est Cr Clr Drug Dosing mL/min Estimated GFR (MDRD) ml/min Glucose (74-106) mg/dL Calcium (8.5-10.1) mg/dL Magnesium (1.8-2.4) mg/dL Total Bilirubin (0.2-1.0) mg/dL AST (15-37) IU/L ALT (14-63) IU/L Alkaline Phosphatase (46-116) U/L Troponin I (0.000-0.056) ng/mL B-Natriuretic Peptide (<100) PG/ML Total Protein (6.4-8.2) g/dL Albumin (3.4-5.0) g/dL Globulin (2.6-4.0) g/dL Albumin/Globulin Ratio (0.9-1.6) SARS-CoV-2 RNA (JONATHON) NEGATIVE (NEGATIVE) 01/25/21 01/25/21 Range/Units 08:50 08:50 WBC (4.0-11.0) K/uL RBC (4.50-5.90) M/uL Hgb (13.0-17.0) g/dL Hct (38.0-50.0) % MCV (80.0-98.0) fL MCH (27.0-32.0) pg MCHC (31.0-37.0) g/dL RDW Std Deviation (28.0-62.0) fl RDW Coeff of Robert (11.0-15.0) % Plt Count (150-400) K/uL MPV (7.40-12.00) fL Neut % (Auto) (48.0-80.0) % Lymph % (Auto) (16.0-40.0) % Lyman % (Auto) (0.0-15.0) % Eos % (Auto) (0.0-7.0) % Baso % (Auto) (0.0-1.5) % Neut # (Auto) (1.4-5.7) K/uL Lymph # (Auto) (0.6-2.4) K/uL Lyman # (Auto) (0.0-0.8) K/uL Eos # (Auto) (0.0-0.7) K/uL Baso # (Auto) (0.0-0.1) K/uL Nucleated RBC % /100WBC Nucleated RBCs # K/uL INR Sodium 145 (136-148) mmol/L Potassium 4.2 (3.5-5.1) mmol/L Chloride 107 (98-107) mmol/L Carbon Dioxide 30.2 (21.0-32.0) mmol/L BUN 29 H (7.0-18.0) mg/dL Creatinine 1.7 H (0.8-1.3) mg/dL Est Cr Clr Drug Dosing 36.77 mL/min Estimated GFR (MDRD) 38.8 ml/min Glucose 122 H (74-106) mg/dL Calcium 8.9 (8.5-10.1) mg/dL Magnesium 2.2 (1.8-2.4) mg/dL Total Bilirubin 1.2 H (0.2-1.0) mg/dL AST 21 (15-37) IU/L ALT 26 (14-63) IU/L Alkaline Phosphatase 68 (46-116) U/L Troponin I < 0.050 (0.000-0.056) ng/mL B-Natriuretic Peptide 25 (<100) PG/ML Total Protein 7.3 (6.4-8.2) g/dL Albumin 3.8 (3.4-5.0) g/dL Globulin 3.5 (2.6-4.0) g/dL Albumin/Globulin Ratio 1.1 (0.9-1.6) SARS-CoV-2 RNA (JONATHON) (NEGATIVE) Meds: Medications Discontinued Medications Generic Name Dose Route Start Last Admin Trade Name Freq PRN Reason Stop Dose Admin Iopamidol 80 ml 01/25/21 12:19 01/25/21 12:20 Iopamidol 755 Mg/Ml 500 Ml Multipack Bottle IVPUSH 01/25/21 12:20 80 ml ONETIME STA Administration Morphine Sulfate 2 mg 01/25/21 08:37 01/25/21 08:54 Morphine 4 Mg/Ml Syringe IVPUSH 01/25/21 08:38 2 mg ONETIME ONE Administration Departure - Departure Time of Disposition: 12:42 Disposition: Home, Self-Care 01 Condition: Fair Clinical Impression: Chest pain, Pulmonary nodule - Discharge Information *PRESCRIPTION DRUG MONITORING PROGRAM REVIEWED*: No *COPY OF PRESCRIPTION DRUG MONITORING REPORT IN PATIENT [place]: No Instructions: Chest Wall Pain, [id number], Pulmonary Nodule, Angina, Easy-to- Read Referrals: Lui Phillip MD [Primary Care Provider] - Delfino Diego MD [Physician] - Forms: ED Department Discharge Additional Instructions: You were evaluated today on an emergent basis. At this time your work-up was negative. You did have evidence of a pulmonary nodule on your CT. The recommen dations for that is that she follow-up with your primary care physician to discuss monitoring. In addition the heart enzyme that has to do with heart attacks was negative. Your chest x-ray was also normal. I recommend that you follow-up with your primary care physician this to discuss further work-up given your heart issues and follow-up with your certified master safe technician Dr. Lal. I recommend you contact them today for a follow-up appointment. If you have any worsening chest pain, shortness of breath I would like you to return to the emergency department. [facility] [address] [place] [address] [id number] The patient is informed of any results of their evaluation and diagnostic workup and all questions are answered. They are given discharge instructions and return precautions. The patient is stable for discharge. The patient states they understand and agree with the plan and that they will return if their symptoms get worse or if they have any new concerns. The following information is given to patients seen in the emergency department who are being discharged to home. This information is to outline your options for follow-up care. We provide all patients seen in our emergency department with a follow-up referral. The need for follow-up, as well as the timing and circumstances, are variable depending upon the specifics of your emergency department visit. If you don't have a primary care physician on staff, we will provide you with a referral. We always advise you to contact your personal physician following an emergency department visit to inform them of the circumstance of the visit and for follow-up with them and/or the need for any referrals to a consulting specialist. The emergency department will also refer you to a specialist when appropriate. This referral assures that you have the opportunity for follow-up care with a specialist. All of these measure are taken in an effort to provide you with optimal care, which includes your follow-up. Under all circumstances we always encourage you to contact your private physician who remains a resource for coordinating your care. When calling for follow-up care, please make the office aware that this follow-up is from your recent emergency room visit. If for any reason you are refused follow-up, please contact the [facility] Emergency Department at and asked to speak to the emergency department charge nurse. Sepsis Event Note (ED) - Evaluation Sepsis Screening Result: No Definite Risk
[2021-01-25 13:11] VITALS: BP 140/91; PULSE 72
--- NOTE | 2021-01-25 13:23 | PCM.EKG ---
#1 Interpretation EKG Date: 01/25/21 Time: 08:15 Rhythm: NSR Rate (Beats/Min): 71 [place]: Normal P-Wave: Present QRS: Normal ST-T: Normal QT: Normal Comparison: No Change (09/11/18) EKG Interpretation Comments: Sinus Rhythm
== END 2021-01-25 13:15 | disposition home or self-care (01) ==
LOC: MW.ED 08:13
DX: R07.9 Chest pain, unspecified (principal); R91.1 Solitary pulmonary nodule; E11.9 Type 2 diabetes mellitus without complications; I11.0 Hypertensive heart disease with heart failure; I50.9 Heart failure, unspecified; I25.10 Atherosclerotic heart disease of native coronary artery without angina pectoris; E66.9 Obesity, unspecified; J44.9 Chronic obstructive pulmonary disease, unspecified; I25.2 Old myocardial infarction; M10.9 Gout, unspecified; K21.9 Gastro-esophageal reflux disease without esophagitis; Z79.899 Other long term (current) drug therapy; Z87.891 Personal history of nicotine dependence; Z20.822 Contact with and (suspected) exposure to COVID-19; Z79.82 Long term (current) use of aspirin; Z68.26 Body mass index [BMI] 26.0-26.9, adult
CPT/HCPCS: 36415; 71045; 71275; 74175; 80053; 83735; 83880; 84484; 85025; 85610; 93005; 96374; 99285; J2270; Q9967; U0002

== ENCOUNTER 2022-01-26 17:38 | Emergency (ER) | payer MEDICARE, OTHER ==
[2022-01-26] MEDS ORDERED: Sodium Chloride 0.9% 10 ML Syringe FLUSH PRN (19:39)
[2022-01-26] MEDS ORDERED: Sodium Chloride 0.9% 2.5 ML Syringe FLUSH PRN (19:39)
[2022-01-26 20:34] LABS: CARBON DIOXIDE,CO2 28.4 mmol/L (21.0-32.0); POTASSIUM,K 4.2 mmol/L (3.5-5.1)
[2022-01-26] MEDS ORDERED: Iopamidol 755 MG/ML 500 ML Multipack Bottle IVPUSH STA (21:27)
[2022-01-27 02:22] VITALS: BP 155/78; PULSE 74
== END 2022-01-26 22:45 | disposition home or self-care (01) ==
LOC: MW.ED 17:38
DX: M54.16 Radiculopathy, lumbar region (principal); I11.0 Hypertensive heart disease with heart failure; I50.9 Heart failure, unspecified; I25.10 Atherosclerotic heart disease of native coronary artery without angina pectoris; E78.00 Pure hypercholesterolemia, unspecified; J44.9 Chronic obstructive pulmonary disease, unspecified; I25.2 Old myocardial infarction; M10.9 Gout, unspecified; K21.9 Gastro-esophageal reflux disease without esophagitis; E66.9 Obesity, unspecified; Z68.26 Body mass index [BMI] 26.0-26.9, adult; Z79.899 Other long term (current) drug therapy
CPT/HCPCS: 36415; 71046; 74177; 80053; 81001; 83690; 85025; 99284; Q9967

== ENCOUNTER 2024-04-28 12:39 | Emergency (ER) | payer MEDICARE, OTHER ==
[2024-04-28 13:23] LABS: BASOPHILS ABSOLUTE AUTO 0.02 K/uL (0.00-0.20); BASOPHILS PERCENT AUTO 0.3 % (0.0-1.0); EOSINOPHILS ABSOLUTE AUTO 0.09 K/uL (0.00-0.45); EOSINOPHILS PERCENT AUTO 1.2 % (0.0-6.0); HEMATOCRIT 37.1 % (42.0-52.0); HEMOGLOBIN 12.4 g/dL (14.0-18.0); IMMATURE GRAN ABSOLUTE AUTO 0.02 K/uL (0.00-0.05); IMMATURE GRAN PERCENT AUTO 0.3 % (0.0-0.4); LYMPHOCYTES ABSOLUTE AUTO 0.85 K/uL (1.00-4.80); LYMPHOCYTES PERCENT AUTO 10.9 % (24.0-44.0); MEAN CORPUSCULAR HEMOGLOBIN 31.8 pg (28.0-32.0); MEAN CORPUSCULAR HGB CONC 33.4 g/dL (32.0-36.0); MEAN CORPUSCULAR VOLUME 95.1 fL (83.0-99.0); MEAN PLATELET VOLUME 9.8 fL (9.4-12.4); MONOCYTES ABSOLUTE AUTO 0.44 K/uL (0.00-0.80); MONOCYTES PERCENT AUTO 5.6 % (0.0-8.0); NEUTROPHILS ABSOLUTE AUTO 6.37 K/uL (1.80-7.70); NEUTROPHILS PERCENT AUTO 81.7 % (41.0-71.0); PLATELET COUNT,PLT 137 K/uL (150-400); WHITE BLOOD CELL COUNT,WBC 7.79 K/uL (3.9-11.3)
[2024-04-28] MEDS: Sodium Chloride 0.9% 2.5 ML Syringe FLUSH PRN (13:32)
[2024-04-28] MEDS: Sodium Chloride 0.9% 1,000 ML IV ONE (13:32)
[2024-04-28] MEDS: Sodium Chloride 0.9% 10 ML Syringe FLUSH PRN (13:32)
[2024-04-28 13:52] LABS: A/G RATIO 0.8 (0.9-1.6); ALBUMIN 3.2 g/dL (3.4-5.0); BILIRUBIN TOTAL 2.2 mg/dL (0.2-1.0); CALCIUM 9.3 mg/dL (8.5-10.1); CARBON DIOXIDE,CO2 26.2 mmol/L (21.0-32.0); CREATININE 1.6 mg/dL (0.8-1.3); EST CRCL DRUG DOSING (CG) 37.05 mL/min; MAGNESIUM 1.8 mg/dL (1.8-2.4); POTASSIUM,K 4.3 mmol/L (3.5-5.1); PROTEIN TOTAL,TP 7.1 g/dL (6.4-8.2)
[2024-04-28 14:50] LABS: APPEARANCE,URINE CLEAR; BILIRUBIN,URINE NEGATIVE (NEGATIVE); COLOR,URINE YELLOW; GLUCOSE,URINE NEGATIVE (NEGATIVE); KETONES,URINE 15 mg/dL (NEGATIVE); LEUKOCYTE ESTERASE,URINE NEGATIVE (NEGATIVE); NITRITE,URINE NEGATIVE (NEGATIVE); OCCULT BLOOD,URINE TRACE-INTACT (NEGATIVE); PROTEIN,URINE NEGATIVE (NEGATIVE); UROBILINOGEN,URINE 0.2 EU/dL (<2.0)
[2024-04-28 15:12] LABS: BACTERIA,URINE FEW (NEGATIVE); EPITHELIAL CELLS,URINE OCCASIONAL (NONE-FEW); RBC,URINE 0-1 (0-2/HPF); WBC,URINE 0-1 (0-5/HPF)
[2024-04-28] MEDS: Iopamidol 755 MG/ML 500 ML Multipack Bottle IVPUSH STA (15:57)
[2024-04-28] MEDS: Doxycycline 100 MG Cap PO ONE (17:19)
[2024-04-28 17:23] VITALS: BP 140/71; PULSE 78
== END 2024-04-28 17:27 | disposition home or self-care (01) ==
LOC: MW.ED 12:39
DX: J06.9 Acute upper respiratory infection, unspecified (principal); N28.89 Other specified disorders of kidney and ureter; I25.10 Atherosclerotic heart disease of native coronary artery without angina pectoris; I25.2 Old myocardial infarction; I11.0 Hypertensive heart disease with heart failure; I50.9 Heart failure, unspecified; E78.00 Pure hypercholesterolemia, unspecified; J44.9 Chronic obstructive pulmonary disease, unspecified; K21.9 Gastro-esophageal reflux disease without esophagitis; E66.9 Obesity, unspecified; Z68.26 Body mass index [BMI] 26.0-26.9, adult; Z90.49 Acquired absence of other specified parts of digestive tract; Z79.82 Long term (current) use of aspirin; Z79.01 Long term (current) use of anticoagulants; Z79.4 Long term (current) use of insulin; Z79.84 Long term (current) use of oral hypoglycemic drugs; Z79.899 Other long term (current) drug therapy; Z75.8 Other problems related to medical facilities and other health care
CPT/HCPCS: 36415; 71045; 71275; 74177; 80053; 81001; 83690; 83735; 83880; 84484; 85025; 85379; 87428; 93005; 96360; 96361; 99284; A9270; J7030; Q9967; 93010; 99285; J3490